=== PATIENT | female | born 1950 | race Caucasian/White ===

== ENCOUNTER → 2018-09-26 09:57 | Outpatient (CLI) | payer MEDICARE, OTHER, SELFPAY ==
--- NOTE | 2018-09-26 10:01 | BI_ITS ---
MAMMOGRAPHY - BILATERAL SCREENING REASON FOR EXAM: Female, 68 years old. Routine annual screening examination. PERTINENT HISTORY: Non-contributory. TECHNIQUE: Digital bilateral breast kourtney (3D mammographic acquisition) in the CC and MLO projections. 2-D mediolateral oblique (MLO) and craniocaudad (CC) views of both breasts were obtained. CAD: Full Field Digital Mammography with Computer Added Detection was performed. COMPARISON: Comparison is made with prior study dated May 27, 2015 and August 07, 2013. FINDINGS: Breast Composition: There are scattered areas of fibroglandular density. There are no dominant masses or suspicious calcifications. Stable small bilateral axillary lymph nodes. No other significant abnormalities are identified. There has been no significant change since the prior study. BI/SCREEN MAMM (CAD) W/KOURTNEY BILAT IMPRESSION: Stable bilateral screening mammogram. Yearly follow-up mammogram recommended. (A) ASSESSMENT CATEGORY: BIRADS Category 1: Negative. A letter regarding these results will be sent to the patient by the facility within 30 days. Approximately 10% of breast cancers are not detected by mammography. A normal mammogram should not delay biopsy of a clinically suspicious abnormality. [id number] Electronically Signed: Abhi Argueta, at 11:21 EDT , Service support ,
--- NOTE | 2018-09-26 10:13 | BD_ITS ---
STUDY: DUAL ENERGY X-RAY ABSORPTIOMETRY / DXA REASON FOR EXAM: Female, 68 years old. The patient is postmenopausal. No loss of height. TECHNIQUE: Bone Mineral Density (BMD) measurements of lumbar spine and bilateral hips were obtained. COMPARISON: Comparison is made with prior study dated August 07, 2013. FINDINGS: Lumbar Spine (L1-L4): g/cm2 (0.947) / T-score (-1.8) / Z-score (-0.2) Findings are suggestive of osteopenia with a moderate fracture risk. Left Femur Total: g/cm2 (0.851) / T-score (-1.2) / Z-score (0.1) Left Femoral Neck: g/cm2 (0.797) / T-score (-1.7) / Z-score (-0.1) Right Femur Total: g/cm2 (0.860) / T-score (-1.2) / Z-score (0.2) Right Femoral Neck: g/cm2 (0.712) / T-score (-2.3) / Z-score (-0.7) The T-Scores on the most recent prior examination were: Lumbar Spine (L1-L4): There has been worsening of bone density since the previous examination. Left Femur Total: which represents a worsening of 8%. Right Femur Total: which represents a worsening of 3.2%. BD/Dexa Bone Density Study IMPRESSION: The patient is considered osteopenic as outlined below according to World Raj Organization (WHO) criteria with a moderate fracture risk. There has been worsening of bone density since the previous examination. Reference Information: The T-score is the number of standard deviations above or below the standard which is normal for young adults at their peak bone mineral density. The World Health Organization (WHO) interprets the T-scores as follows: Above -1 Normal bone density Between -1 and -2.5 Osteopenia Equal to / or below -2.5 Osteoporosis As a practical clinical guideline, osteopenia may be graded as follows: Mild -1 through -1.5 Moderate -1.6 through -2.0 Severe -2.1 through -2.4 The Z-score is the number of standard deviations above or below age-matched controls. A Z-score of less than -1.5 would be considered abnormal. References: 1. NIH Osteoporosis and Related Bone Diseases http://www.osteo.org 2. International Society for Clinical Densitometry http://www.iscd.org 3. National Osteoporosis Foundation http://www.nof.org Electronically Signed: Abhi Argueta, at 13:30 EDT , Service support ,
== END ==
PROVIDERS: Family Provider Family Medicine; PCP Family Medicine; Referring Provider Family Medicine; Visit Provider Family Medicine
DX: Z12.31 Encounter for screening mammogram for malignant neoplasm of breast (principal); Z78.0 Asymptomatic menopausal state; M81.0 Age-related osteoporosis without current pathological fracture
CPT/HCPCS: 77063; 77067; 77080

== ENCOUNTER → 2019-04-23 13:00 | Outpatient (CLI) | payer MEDICARE, MEDICAID, SELFPAY ==
--- NOTE | 2019-04-23 13:15 | SP.MBSS_ITS ---
PRIMARY / SECONDARY DIAGNOSIS: dysphagia (R13.10) REFERRING PHYSICIAN: Dr. Jay Aguiar MD CURRENT DIET: regular textures, thin liquids DENTITION: WFL MENTAL STATUS: WNL RESPIRATORY STATUS: O2 via room air REASON FOR REFERRAL: The Patient is a 69 year old female referred for a modified barium swallow (MBS) study to objectively assess the Patients oropharyngeal swallow function under fluoroscopy secondary to reported persistent globus sensation over the past 2-3 years, with an uptake in significance over the past few months accompanied by increased mucous production and intermittent reflux in the evening. MEDICAL HISTORY: No significant past medical issues reported. PREVIOUS MODIFIED BARIUM SWALLOW STUDY: None ASSESSMENT PARAMETERS: The Patient participated in a Modified Barium Swallow (MBS) study on 04/23/2019. This study was recorded in the lateral and frontal views and images were sent to PACs for storage. Scoring was completed through each trial using the 8-point Penetration-Aspiration Scale (PAS) and summarized via the Videofluoroscopic Dysphagia Scale (VDS) and the Bolus Residue Scale (BRS), with severity scoring through the Dysphagia Severity Rating Scale (DSRS) and the Swallowing Performance Scale (SPS), and recommended diet textures through the International Dysphagia Diet Standardisation Initiative (IDDSI). 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 OBJECTIVE ASSESSMENT OF SWALLOW FUNCTION (QUANTITATIVE ? PER TRIAL): PENETRATION / ASPIRATION SCALE (VIRGEN): 1 = does not enter airway 2 = enters airway/above vocal folds/ejected 3 = enters airway/above vocal folds/not ejected 4 = enters airway/contacts vocal folds/ejected 5 = enters airway/contacts vocal folds/not ejected 6 = enters airway/below vocal folds/ejected 7 = enters airway/below vocal folds/not ejected despite effort 8 = enters airway/below vocal folds/no effort PENETRATION / ASPIRATION SCALE (SCORE): Thin liquid - 5 mL tsp.: 1 Thin liquids via cup (single sip): 1 Thin liquids via cup (single sip): 1 Thin liquids via cup (single sip): 1 Pudding via spoon: 1 Regular textured cookie: 1 Thin liquids via cup (single sip): 2 Thin liquids via cup (single sip): NA* Pudding via spoon: NA* * denotes anterior posterior view OBJECTIVE ASSESSMENT OF SWALLOW FUNCTION (QUANTITATIVE ? AGGREGATE): VIDEOFLOROSCOPIC DYSPHAGIA SCALE (VDS): LIP CLOSURE: 0 (of 4) Intact BOLUS FORMATION: 0 (of 6) Intact MASTICATION: 0 (of 8) Intact APRAXIA: 0 (of 4.5) None TONGUE TO PALATE CONTACT: 0 (of 10) Intact PREMATURE BOLUS LOSS: 0 (of 4.5) None ORAL TRANSIT TIME: 0 (of 3) < 1.5s TRIGGERING OF PHARYNGEAL SWALLOW: 0 (of 4.5) Normal VALLECULAR RESIDUE: 2 (of 6) <10% LARYNGEAL ELEVATION: 0 (of 9) Normal PYRIFORM SINUS RESIDUE: 9 (of 13.5) 10-50% COATING OF PHARYNGEAL WALL: 0 (of 9) No PHARYNGEAL TRANSIT TIME: 0 (of 6) <1.0s ASPIRATION: 6 (of 12) Supraglottic penetration BOLUS RESIDUE SCALE (BRS): 4 (of 6) residue in valleculae and piriforms OBJECTIVE ASSESSMENT OF SWALLOW FUNCTION (SEVERITY GRADING): DYSPHAGIA SEVERITY RATING SCALE (DSRS): 2 (mild) SWALLOWING PERFORMANCE SCALE (SPS): 3 (mild) OBJECTIVE ASSESSMENT OF SWALLOW FUNCTION (QUALITATIVE): ORAL PREPARATORY PHASE: sufficient mastication rate and quality; sufficient anterior oral containment during oral manipulation; preserved management of breathing / bolus formation without disrupted E ? S ? E pattern ORAL TRANSITIONAL PHASE: no presence of transitional incompetence; no lingual discoordination (no tremor / undulations); no bolus consolidation impairments; sufficient oral containment across textures with no presence of premature posterior bolus loss. PHARYNGEAL PHASE: no clinically significant findings suggesting pharyngeal dyssynchrony; appropriate hyolaryngeal excursion and laryngeal vestibule closure / pressure; sufficient / consistent laryngeal vestibule pressure generated to expel penetrated material; mild pharyngeal dysmotility attributed to what appears to be a large Zenker?s diverticulum with retrograde reflux with retrograde flow back into the pharyngeal arena raising concern for post prandial penetration and aspiration; pre-and karrie prandial motility appears functional; no signs of velopharyngeal impairments; transient shallow penetration with ingestion of thin liquids (single event) considered to be an normal age related variant; no further penetration / aspiration throughout trials. ESOPHAGEAL PHASE: there appears to be a large Zenker?s diverticulum along the posterior upper 3rd of the esophagus with consistent retention and retrograde flow back into the pharyngeal arena DYSPHAGIA ASSOCIATED MEDICAL CONSIDERATIONS / INTERVENTION CONSIDERATIONS: The Patient requires further consultation and possible surgical intervention to address the rather large Zenker?s diverticulum located within the upper 3rd of the esophagus. INTERVENTION RECOMMENDATIONS AND CONSIDERATIONS: No further skilled speech-language services warranted at this time targeting dysphagia. POST ASSESSMENT EDUCATION: Results and recommendations were discussed with the Patient immediately following MBS completion, with the Patient verbalizing understanding and agreement with all recommendations and education provided. DIET TEXTURE RECOMMENDATIONS: Will recommend a regular ? soft textured (IDDSI: 6), thin liquid diet (IDDSI: 0) diet RECOMMENDED COMPENSATORY STRATEGIES: Consider cutting tougher textures into bite sized pieces, reduced bolus volume / rate of ingestion, liquid chaser at reasonable intervals, seated upright at 90 degrees during PO intake, remain upright for 30-60 minutes post meal (reflux precaution) IMAGE COUNT: [id number] Tushar Vaca M.A., ANNE-ENGINE OILER, CBIS MBSImP Certified, LSVT Certified [facility] Speech-Language Pathology Department [email or web address]
== END ==
PROVIDERS: Family Provider Family Medicine; PCP Family Medicine; Referring Provider Family Medicine; Visit Provider Family Medicine
DX: R13.10 Dysphagia, unspecified (principal)
CPT/HCPCS: 76000; 92611

== ENCOUNTER → 2019-04-29 12:01 | Outpatient (CLI) | payer MEDICARE, MEDICAID, SELFPAY ==
--- NOTE | 2019-04-29 12:18 | RAD_ITS ---
STUDY: X-RAY - PELVIS AND RIGHT HIP REASON FOR EXAM: Female, 69 years old. Right hip pain TECHNIQUE: 3 views of the pelvis and hip. COMPARISON: CT abdomen and pelvis September 15, 2009; 2 views of the right hip February 02, 2012. FINDINGS: There is a non-specific bowel gas pattern. There are a few pelvic calcified phleboliths. Contrast from previous study also seen within diverticula of the sigmoid colon There are stable degenerative changes of the lower lumbar spine. There is stable cortical sclerosis along the bilateral sacroiliac joints, consistent with degenerative osteoarthritic changes. Normal iliac wings and visualized sacrum. Normal bilateral superior and inferior pubic rami. Normal pubic symphysis. Normal bilateral ischial tuberosities. Normal visualized femoral head. Out cortical spurring along the greater trochanter. Normal acetabulum. Normal hip joint. There is no demonstrated osseous destructive lesion or acute fracture. RAD/HIP, UNI W/ Pelvis 2-3 Views IMPRESSION: 1. Mild cortical spurring of the greater trochanter of the proximal right femur, otherwise normal x-ray examination of the right hip. 2. Degenerative changes again seen in the lower lumbar spine and bilateral sacroiliac joints. Electronically Signed: Ton Farias MD at 20:03 EST , Service support ,
[2019-04-29 15:32] LABS: Absolute Lymphocyte Count 1.77 X10^3/uL (0.83-4.51); Absolute Neutrophil Count 3.4 X10^3/uL (2.0-7.7); Basophil% 1.7 % (0-1); Eosinophil# 0.45 X10^3/uL; Eosinophils% 7.4 % (0-5); Hematocrit 42.8 % (37-47); Hemoglobin 13.2 g/dL (12.0-15.0); Lymphocyte # 1.77 X10^3/ul (4.0); Lymphocyte % 29.2 % (19-41); Mean Corp Hgb Conc 30.8 g/dL (32-36); Mean Corpuscular Hgb 29.6 pg (27.0-32.0); Monocyte# 0.33 X10^3/uL; Monocyte% 5.4 % (0-10); NRBC Flagged by Analyzer 0 % (0-5); Neutrophil % 56.1 % (47-70); Platelet Count 379 K/mm3 (150-450); RBC Distribution Width CV 12.8 % (11.6-14.6); RBC Distribution Width SD 45.3 fl (35.1-43.9); Red Blood Count 4.46 M/mm3 (4.2-5.4); White Blood Count 6.1 K/mm3 (4.4-11.0)
[2019-04-29 16:09] LABS: Vitamin B12 660 pg/mL (211-911); Vitamin D,25 Hydroxy 13.6 ng/mL (29.95-100.01)
[2019-04-29 16:38] LABS: ALB/GLOB Ratio 0.9 RATIO (0.9-2.4); AST(SGOT) 19 U/L (15-37); Alanine Aminotransfer ALT/SGPT 29 U/L (13-56); Albumin, Serum 3.5 g/dL (3.2-5.0); Alkaline Phosphatase 90 U/L (45-117); Anion Gap 5 (5-15); BUN 14 mg/dL (7-18); BUN/Creat Ratio 13.6 RATIO (10-20); Calcium,Total 9.5 mg/dL (8.5-10.1); Chloride 105 mmol/L (98-107); Cholesterol 207 mg/dL (200); Creatinine, Serum 1.03 mg/dL (0.55-1.02); EST Glomerular Filtration Rate 56 mL/min (>60); Est Glom Filt Rate - Afr Amer 68 mL/min (>60); Globulin 3.8 g/dL (2.2-4.2); Glucose 88 mg/dL (74-106); High Density Lipoprotein 74 mg/dL; Potassium 4.1 mmol/L (3.5-5.1); Protein, Total 7.3 g/dL (6.4-8.2); Sodium Level 141 mmol/L (136-145); T4 Free Direct 0.94 ng/dL (0.76-1.46); Thyroid Stim Hormone (TSH) 1.87 uIU/mL (0.358-3.74); Triglycerides 200 mg/dL; Very Low Density Lipoprotein 40 mg/dL (5-40)
== END ==
PROVIDERS: PCP Family Medicine; Referring Provider Family Medicine; Visit Provider Family Medicine
DX: R53.83 Other fatigue (principal); E78.5 Hyperlipidemia, unspecified; M81.0 Age-related osteoporosis without current pathological fracture; R41.3 Other amnesia; M25.551 Pain in right hip; Z51.81 Encounter for therapeutic drug level monitoring
CPT/HCPCS: 36415; 73502; 80053; 80061; 82306; 82607; 84439; 84443; 85025

== ENCOUNTER → 2019-12-11 13:54 | Outpatient (CLI) | payer MEDICARE, MEDICAID, SELFPAY ==
[2019-05-07 08:20] VITALS: BMI 29.2
[2019-12-11 15:55] LABS: Vitamin D,25 Hydroxy 41.8 ng/mL
== END ==
PROVIDERS: Family Provider Family Medicine; PCP Family Medicine; Visit Provider Family Medicine
DX: E55.9 Vitamin D deficiency, unspecified (principal)
CPT/HCPCS: 36415; 82306

== ENCOUNTER → 2020-01-23 08:55 | Outpatient (CLI) | payer MEDICARE, MEDICAID, SELFPAY ==
[2019-05-07 08:20] VITALS: BMI 29.2
--- NOTE | 2020-01-23 08:59 | RAD_ITS ---
STUDY: X-RAY - LEFT KNEE REASON FOR EXAM: Female, 69 years old. Dogs ran into the back of pt''s legs and fell, now left knee pain x 1 week TECHNIQUE: 4 view(s) of the knee. COMPARISON: None. FINDINGS: Normal visualized distal femur. Normal visualized proximal tibia and fibula. Normal proximal tibiofibular articulation. There is mild degenerative arthrosis of the medial femorotibial compartment. Normal lateral femorotibial compartment. Normal patellofemoral articulation. The soft tissue structures are unremarkable. RAD/Knee 4 or More Views IMPRESSION: Degenerative arthrosis. Electronically Signed: Abhi Argueta, at 13:08 EST , Service support ,
== END ==
PROVIDERS: PCP Family Medicine; Referring Provider Family Medicine; Visit Provider Family Medicine
DX: M17.12 Unilateral primary osteoarthritis, left knee (principal)
CPT/HCPCS: 73564

== ENCOUNTER 2020-11-19 07:11 | Day surgery (SDC) | payer MEDICARE, MEDICAID, SELFPAY ==
--- NOTE | 2020-11-18 08:34 | EKG12_ITS ---
Test Reason : PREOP Blood Pressure : / mmHG Vent. Rate : 067 BPM Atrial Rate : 067 BPM P-R Int : 148 ms QRS Dur : 072 ms QT Int : 380 ms P-R-T Axes : 060 -04 036 degrees QTc Int : 401 ms Normal sinus rhythm Septal infarct , age undetermined Abnormal ECG Confirmed by LINDSAY CAMPOS, JUSTO ([id number]), editor greeting card [place] ([id number]) on 11/23/2020 8:11:48 AM Referred By: Charles Naranjo Confirmed By:IRINA MONTOYA MD
[2020-11-19] VITALS (8 sets, daily range): BP systolic 118–148; BP diastolic 65–97; PULSE 64–72; RESP 16; TEMP 36.1–37.4; O2SAT 92–100; BMI 26.7
[2020-11-19] MEDS: Lactated Ringers 1,000 ML 100 ML IV (07:56)
[2020-11-19 08:12] LABS: Anion Gap 2 (5-15); BUN 13 mg/dL (7-18); Calcium,Total 9.2 mg/dL (8.5-10.1); Chloride 108 mmol/L (98-107); Creatinine, Serum 0.81 mg/dL (0.55-1.02); EST Glomerular Filtration Rate 74 mL/min (>60); Est Glom Filt Rate - Afr Amer 90 mL/min (>60); Estimated Creatinine Clearance 51.11 ml/min; Glucose 96 mg/dL (74-106); Potassium 4.2 mmol/L (3.5-5.1); Sodium Level 140 mmol/L (136-145)
[2020-11-19] MEDS: Lubricating Jelly 60 GM Tube 30 GM TOPICAL (09:09)
--- NOTE | 2020-11-19 09:42 | PCM.OPRPT ---
Problems Associated Problem List Diagnoses (1) Zenker's diverticulum: (2) Dysphagia: Report of Operation Date of Procedure: 11/19/20 Pre-Operative Diagnosis: Zenker's diverticulum, dysphagia Post-Operative Diagnosis: Same Surgery/Procedure Performed:: Endoscopic treatement of Zenker's diverticulum by esophagoscopy with diverticulotomy Description of Surgical Findings:: Phylicia is a 71-year-old female with a large Zenker's diverticulum resulting in restriction of her diet to mostly liquids due to significant dysphagia. Barium swallow at an outside facility showed a large posterior Zenker's diverticulum amenable to endoscopic treatment and the above procedure was offered. The risks, alternatives, potential complications, and benefits were discussed at length and any questions answered to the patient and/or caregiver's satisfaction. Witnessed informed consent was obtained in the office, and the patient and/or caregiver was agreeable to proceed. Procedure went as follows: The patient was identified in the preoperative holding and brought to the operating room where she was placed under general anesthesia and intubated. When appropriate anesthesia obtained, the head of bed was rotated and the patient prepped and draped in usual sterile fashion. A dental guard was then placed to protect the upper teeth and a sliding Evangelist laryngoscope then introduced. The larynx was elevated anteriorly and a large posterior diverticulum was immediately encountered at the esophageal inlet. The actual esophageal inlet was markedly stenosed and anteriorly placed and was able to be intubated with a nasogastric tube which on air insufflation produced audible gastric bubbling. The sliding Evangelist was then removed and a Weerda scope then placed following the NG tube as a guide. The superior limb of the scope was then placed into the esophagus and the inferior into the diverticulum bringing the cricopharyngeal band into view. The patient was then placed in suspension and traction placed to allow for introduction of a BHAVANA endoscopic stapler which was then used to transect the cricopharyngeal muscle joining the diverticulum into the esophageal lumen. Due to the long length of her diverticulum with secondary stapling was then performed completely reducing the diverticulum and freeing the stricture of the cervical esophageal inlet. The very to scope was then withdrawn along with the dental guard. The patient was then returned to anesthesia having tolerated the procedure well without complication. Surgeon: Charles Naranjo Type of Anesthesia: General Anesthesiologist: Kancherla,Bereket Specimen's removed: none Drains: none Estimated Blood Loss (mL): 0 mL Fluids Replaced: 1000 mL Grafts/Implants Used: none Complications none Admit VTE Documentation VTE Present on Admission: No VTE Mechan Device Prophylaxis: SCD's VTE Pharm Prophylaxis ordered?: No
--- NOTE | 2020-11-19 09:52 | PCM.DC ---
Discharge Instructions Diet Discharge Diet: - (Clear liquid diet only for 3 days, then advance to soft as tolerated) Activity Discharge Activity: Return to Normal Activity Dressing / Incision Call your doctor if your incision/area has: Increased Pain/ Swelling and - (chest pain, heart racing, shortness of breath) Call your doctor if you observe: Fever of 101 or Higher, Shortness of breath, Chest pain, Increased palpitations (irregular heartbeat) and Uncontrolled pain Follow Up Care Please Follow Up With: tai When: 2 weeks Test Results: Test results from this visit will be discussed in further detail at your follow-up appointment, if applicable. Discharge Plan Admission Primary Reason for Your Visit: Zenker's diverticulum Attending Provider: Charles Naranjo Primary Care Provider: Jay Aguiar Instructions Additional Instructions / Restrictions: Due to increased community Covid and the number of hospitalized patients with Covid the patient is strongly desirous to convalesce at home after surgery. We have discussed that the risk of mediastinitis is small but real and she is agreeable to notify me for any elevated temperatures, worsening chest pain, or fast heart rate as these would be signs of possible infection. She is also agreeable to restrict to a clear diet for 3 days to ensure full wound healing prior to advancement of the diet. Given her understanding of this potential risk and agreeability to adhere to the dietary restrictions and notification I feel that it is acceptable for her to be maintained at home during this recovery. Discharge Orders/Prescriptions Prescriptions: New acetaminophen 160 mg/5 mL (5 mL) Suspension 500 mg PO Q4H PRN PRN (Reason: Pain Score 1-5) Qty: 0 RF: 0 Referrals / Follow Up: Jay Aguiar DO [Primary Care Provider] - Disposition Disposition (needs filled in before D/C Order can be placed): Home, Self Care
== END 2020-11-19 14:36 | disposition home or self-care (01) ==
LOC: SDC 07:14 → AC 07:14
PROVIDERS: PCP Family Medicine; Referring Provider Otolaryngology; Visit Provider Otolaryngology
PROC: (CPT 43180; principal; 2020-11-19 08:45)
DX: K22.5 Diverticulum of esophagus, acquired (principal); R13.14 Dysphagia, pharyngoesophageal phase
CPT/HCPCS: 43180; 80048; 87426; 93005; C9803; J7120; J2405

== ENCOUNTER → 2021-11-10 | Outpatient (CLI) | payer MEDICARE, MEDICAID, SELFPAY ==
[2021-11-10 10:22] LABS: Absolute Lymphocyte Count 1.44 X10^3/uL (0.83-4.51); Absolute Neutrophil Count 2.5 X10^3/uL (2.0-7.7); Basophil# 0.08 X10^3/uL; Basophil% 1.7 % (0-1); Eosinophil# 0.27 X10^3/uL; Eosinophils% 5.8 % (0-5); Hematocrit 39.6 % (37-47); Hemoglobin 12.8 g/dL (12.0-15.0); Lymphocyte # 1.44 X10^3/ul (0.83-4.51); Lymphocyte % 30.7 % (19-41); Mean Corp Hgb Conc 32.3 g/dL (32-36); Mean Corpuscular Hgb 30.8 pg (27.0-32.0); Mean Corpuscular Volume 95.2 fL (81-99); Mean Platelet Vol. 10.1 fl (6.2-12.0); Monocyte# 0.39 X10^3/uL; Monocyte% 8.3 % (0-10); NRBC Flagged by Analyzer 0 % (0-5); Neutrophil % 53.3 % (47-70); Platelet Count 347 K/mm3 (150-450); RBC Distribution Width CV 13.1 % (11.6-14.6); Red Blood Count 4.16 M/mm3 (4.2-5.4); White Blood Count 4.7 K/mm3 (4.4-11.0)
[2021-11-10 10:42] LABS: Vitamin D,25 Hydroxy 30.5 ng/mL
[2021-11-10 11:06] LABS: ALB/GLOB Ratio 0.9 RATIO (0.9-2.4); AST(SGOT) 13 U/L (15-37); Alanine Aminotransfer ALT/SGPT 24 U/L (13-56); Albumin, Serum 3.2 g/dL (3.2-5.0); Alkaline Phosphatase 72 U/L (45-117); Anion Gap 4 (5-15); BUN 12 mg/dL (7-18); BUN/Creat Ratio 13.5 RATIO (10-20); Calcium,Total 9.3 mg/dL (8.5-10.1); Chloride 108 mmol/L (98-107); Cholesterol 197 mg/dL (200); Creatinine, Serum 0.89 mg/dL (0.55-1.02); EST Glomerular Filtration Rate 67 mL/min (>60); Est Glom Filt Rate - Afr Amer 81 mL/min (>60); Globulin 3.7 g/dL (2.2-4.2); Glucose 89 mg/dL (74-106); High Density Lipoprotein 78 mg/dL; Potassium 4.3 mmol/L (3.5-5.1); Protein, Total 6.9 g/dL (6.4-8.2); Sodium Level 141 mmol/L (136-145); Thyroid Stim Hormone (TSH) 1.71 uIU/mL (0.358-3.74); Triglycerides 130 mg/dL; Very Low Density Lipoprotein 26 mg/dL (5-40)
== END | disposition home or self-care (01) ==
LOC: MTLAB 07:11
PROVIDERS: PCP Family Medicine; Referring Provider Family Medicine; Visit Provider Family Medicine
DX: E78.5 Hyperlipidemia, unspecified (principal); E55.9 Vitamin D deficiency, unspecified; R53.83 Other fatigue
CPT/HCPCS: 36415; 80053; 80061; 82306; 84443; 85025

== ENCOUNTER → 2021-12-26 | Outpatient (CLI) | payer MEDICARE, MEDICAID, SELFPAY ==
--- NOTE | 2021-12-26 12:28 | STE_ITS ---
Reason For Study: Chest Pain; ZHENG; Fatigue Stress Results Protocol: Sunil Protocol Maximum Predicted HR: 149 bpm Target HR: 127 bpm % Maximum Predicted HR: 92 % DurationHeart Rate Stage (mm:ss) (bpm) BP Comment Baseline 63 124/86No Chest Pain Sunil Protocol Stage I 3:00 105 120/72No Chest Pain Sunil Protocol Stage II 3:00 117 140/70No Chest Pain; Mild Dyspnea Sunil Protocol Stage III 2:10 137 160/72No Chest Pain; Mild Dyspnea; Fatigue Recovery 84 134/76No Chest Pain Stress Duration: 8:10 mm:ss Maximum Stress HR: 137 bpm METS: 10 Baseline Echocardiogram Findings Stress Echo Wall motion Data Resting WM Intermediate WM Stress WM ECHO/Stress Test Echo w/o Contrast Interpretation Summary Exercise stress echo. 71-year-old lady with a history of chest pain. Stress EKG. Resting EKG demonstrates normal sinus rhythm with a rate of 63 bpm normal inter vals are noted resting blood pressure is 124/86 mmHg. The patient exercised according to the r egular Sunil protocol for a total duration of 8 minutes and 10 seconds. The maximum heart rate attain ed was 148 bpm which was 99% of max impacted heart rate the maximum workload was 10.1 metabolic equi valents. At rest there were no ST or T wave changes noted suggest ischemia and at peak exercise upsloping ST changes were noted we did not meet the criteria for ischemia. No clinical angina was no kashif the resting blood pressure was 124/86 with a peak blood pressure 170/72 mmHg. Stress echocardiogram. The resting echocardiographic evaluation demonstrated an ejection fraction of a pproximately 60%. The patient exercised according to regular Sunil protocol and at peak exercise ther e was thickening of all peterson and reduction of low ventricular cavity size with peaking of ejection fraction at 70%. No wall motion abnormalities were noted. Conclusion: Normal exercise stress echo with no evidence of ischemia at a high workload. Ordering Physician: Jay Aguiar Referring Physician: Jay Aguiar Performed By: Becca Hansen, PERRY, RVT
== END | disposition home or self-care (01) ==
LOC: CVS 12:26
PROVIDERS: PCP Family Medicine; Referring Provider Family Medicine; Visit Provider Family Medicine
DX: R07.9 Chest pain, unspecified (principal); R06.09 Other forms of dyspnea
CPT/HCPCS: 93017; 93350

== ENCOUNTER → 2022-01-10 | Outpatient (CLI) | payer MEDICARE, MEDICAID, SELFPAY ==
--- NOTE | 2022-01-10 11:58 | BI_ITS ---
MAMMOGRAPHY - BILATERAL SCREENING REASON FOR EXAM: Female, 71 years old. Routine annual screening examination. PERTINENT HISTORY: Non-contributory. TECHNIQUE: Digital bilateral breast kourtney (3D mammographic acquisition) in the CC and MLO projections. 2-D mediolateral oblique (MLO) and craniocaudad (CC) views of both breasts were obtained. CAD: Full Field Digital Mammography with Computer Added Detection was performed. COMPARISON: Comparison is made with prior study 09/26/2018 and 05/27/2015. FINDINGS: Breast Composition: There are scattered areas of fibroglandular density. There are no dominant masses or suspicious calcifications. Stable small benign-appearing bilateral axillary lymph nodes. No other significant abnormalities are identified. There has been no significant change since the prior study. BI/SCRN MAMM (CAD)W/KOURTNEY BILAT IMPRESSION: Stable bilateral screening mammogram. Yearly follow-up mammogram recommended. (A) ASSESSMENT CATEGORY: BIRADS Category 2: Benign. A letter regarding these results will be sent to the patient by the facility within 30 days. Approximately 10% of breast cancers are not detected by mammography. A normal mammogram should not delay biopsy of a clinically suspicious abnormality. [id number] Electronically Signed: Abhi Argueta MD at 13:17 EDT ,
--- NOTE | 2022-01-10 12:23 | BD_ITS ---
STUDY: DUAL ENERGY X-RAY ABSORPTIOMETRY / DXA REASON FOR EXAM: Female, 71 years old. M810 TECHNIQUE: Bone Mineral Density (BMD) measurements of lumbar spine and bilateral hips were obtained. COMPARISON: Comparison is made with prior study dated 09/26/2018. FINDINGS: Lumbar Spine (L1-L4): g/cm2 (0.923) / T-score (-1.1) / Z-score (1.1) Findings are suggestive of osteopenia with a low fracture risk. Left Femur Total: g/cm2 (0.741) / T-score (-1.6) / Z-score (0.0) Left Femoral Neck: g/cm2 (0.625) / T-score (-2.0) / Z-score (-0.1) Right Femur Total: g/cm2 (0.733) / T-score (-1.7) / Z-score (-0.1) Right Femoral Neck: g/cm2 (0.571) / T-score (-2.5) / Z-score (-0.6) The T-Scores on the most recent prior examination were: Lumbar Spine (L1-L4): There has been worsening of bone density since the previous examination. Left Femur Total: which represents a worsening of 6.1%. Right Femur Total: which represents a worsening of 8.2%. BD/Dexa Bone Density Study IMPRESSION: The patient is considered osteopenic as outlined below according to World Raj Organization (WHO) criteria with a high fracture risk. There has been worsening of bone density since the previous examination. Reference Information: The T-score is the number of standard deviations above or below the standard which is normal for young adults at their peak bone mineral density. The World Health Organization (WHO) interprets the T-scores as follows: Above -1 Normal bone density Between -1 and -2.5 Osteopenia Equal to / or below -2.5 Osteoporosis As a practical clinical guideline, osteopenia may be graded as follows: Mild -1 through -1.5 Moderate -1.6 through -2.0 Severe -2.1 through -2.4 The Z-score is the number of standard deviations above or below age-matched controls. A Z-score of less than -1.5 would be considered abnormal. References: 1. NIH Osteoporosis and Related Bone Diseases www osteo.org 2. International Society for Clinical Densitometry www iscd.org 3. National Osteoporosis Foundation www nof.org Electronically Signed: Abhi Argueta MD at 9:13 EDT ,
== END | disposition home or self-care (01) ==
PROVIDERS: PCP Family Medicine; Visit Provider Family Medicine
DX: M81.0 Age-related osteoporosis without current pathological fracture (principal); Z12.31 Encounter for screening mammogram for malignant neoplasm of breast
CPT/HCPCS: 77063; 77067; 77080

== ENCOUNTER → 2022-03-03 | Outpatient (CLI) | payer MEDICARE, MEDICAID, SELFPAY ==
--- NOTE | 2022-03-03 13:38 | ST.MBS ---
Modified Barium Swallow - Patient Information Study Date: 03/03/22 Study Time: 13:00 Direct Billable Minutes: 75 Total Minutes procedure & reportin Diagnosis: Dysphagia (R13.10), Zenker's diverticulum (K22.5) Referring Physician: Jay Aguiar Reason for Referral: Objectively assess swallow function, assess risk for aspiration, and determine recommendations for least restrictive diet textures and compensatory strategies to improve safety of swallow. Medical History: The patient is a 71-year-old female with PMH including dysphagia and Zenker's diverticulum. Previous MBSS 04/23/2019 presented with overall normal oropharyngeal swallow function with abnormal esophageal phase findings indicative of Zenker?s diverticulum. Pt underwent surgery to repair Zenker's diverticulum on 11/19/2020. She has noticed increased difficulty swallowing in the past two months characterized by sensation of her throat being clogged and difficulty getting foods and pills down. Her PCP would like to start her on a medication, but she was hesitant due to her swallowing difficulty. He referred her for repeat MBSS. Current Diet Ordered: Soft solids / Thin liquids Dentition: WNL Mental Status: WNL Respiratory Status: Oxygenating on Room Air - Penetration-Aspiration Scale Penetration-Aspiration Scale: OBJECTIVE ASSESSMENT OF SWALLOW FUNCTION (QUANTITATIVE ? PER TRIAL): PENETRATION / ASPIRATION SCALE (VIRGEN): 1 = does not enter airway 2 = enters airway/above vocal folds/ejected 3 = enters airway/above vocal folds/not ejected 4 = enters airway/contacts vocal folds/ejected 5 = enters airway/contacts vocal folds/not ejected 6 = enters airway/below vocal folds/ejected 7 = enters airway/below vocal folds/not ejected despite effort 8 = enters airway/below vocal folds/no effort VIDEOFLOROSCOPIC SCALE SCORE (VIGREN): Grade I = aspiration of material that has penetrated into the laryngeal vestibule, intact cough reflex Grade II = aspiration < 10 % of the bolus, intact cough reflex Grade III = aspiration of < 10 % of the bolus, reduced cough reflex or aspiration of > 10 % of the bolus, intact cough reflex Grade IV = aspiration of > 10 % of the bolus, reduced cough reflex - Penetration-Aspiration Scale Score Thin Liquid via teaspoon Result: 1= does not enter airway Thin Liquid via small single sip from cup Result: 1= does not enter airway Thin Liquid via sequential sips from cup Result: 1= does not enter airway [place] Thick Liquid via small single sip from cup Result: 1= does not enter airway [place] Thick Liquid via small single sip from cup Result: 1= does not enter airway Pudding via teaspoon with esophageal screen Result: 1= does not enter airway 1/2 Cookie Result: 1= does not enter airway Thin Liquid via single sip from straw Result: 1= does not enter airway Barium Tablet with water Result: 1= does not enter airway - Oral Phase Labial Seal: No Labial Escape Tongue Control During Bolus Hold: Cohesive bolus between tongue to palatal seal Bolus Preparation/Mastication: Timely and efficient chewing and mashing Bolus Transport/Lingual Motion: Brisk tongue motion Oral Residue: Residue collection on oral structures - piecemeal deglutition of cookie - Pharyngeal Phase Initiation of Pharyngeal Swallow: Bolus head in valleculae Soft Palate Elevation: No bolus between soft palate and pharyngeal wall Laryngeal Elevation: Comp. Superior move thyroid cart w/comp. apprx arytenoid cart-epig pet Anterior Hyoid Excursion: Complete anterior movement Epiglottic Movement: Partial inversion Laryngeal Vestibule Closure at Height of Swallow: Complete; no air/contrast in laryngeal vestibule Pharyngeal Stripping Wave: Present - complete Pharyngoesophageal Segment Opening: Complete distension and complete duration; no obstruction of flow Tongue Base Retraction: Narrow column of contrast between tongue base & post. pharyngeal wall Pharyngeal Residue: Trace residue within or on pharyngeal structures - Esophageal Phase Esophageal Clearance: Esophageal retention - Diagnosis/Impression Diagnosis: Oropharyngeal swallow function grossly WNL Impression: Oropharyngeal swallow function is grossly WNL. The patient presents with timely swallow onset, good airway closure during the swallow, and trace pharyngeal residues. She demonstrated timely and effective mastication and piecemeal deglutition of cookie. No aspiration observed with any trials during the study. Good oral and pharyngeal clearance of thin liquid pills. SERVICER TRAV[employer] TRAILERS informed pt it is okay to consume medications whole. SERVIC[employer] TRAV[employer] TRAIL[employer] concerned for returning Zenker's diverticulum. SEE esophageal retention in images in PACS across all liquid, pudding, and cookie trials. Barium tablet did fully clear through the upper esophagus. Image below is of retention of honey thick liquid in upper esophagus. - Recommendations Diet: Regular Textures - Easy to Chew textures (IDDSI Level 7), Thin Liquids Compensatory Strategies: Small Bites, Small Sips, Slow Rate, Alternate bites/solids and sips/liquids, Sitting upright, Remain sitting upright for 30 minutes after PO intake Recommend Repeat Modified Barium Swallow: No Need for Skilled Speech Therapy Services: No Recommended Referrals: ENT Consult - Will recommend re-consult with ENT, Dr. Naranjo, regarding concerns for Zenker's diverticulum. Education Completed: 1. Described result of evaluation. - Image Count: [id number] - Status Active ST Patient: Active - Contact Information [facility] Speech Therapy:: Karina Miranda M.A. [facility]-[employer] Speech-Language Pathologist [facility] [address] [place] [address] [email or web address] [phone] 03/03/22 14:12
== END | disposition home or self-care (01) ==
LOC: RAD 12:41
PROVIDERS: PCP Family Medicine; Referring Provider Family Medicine; Visit Provider Family Medicine
DX: R13.10 Dysphagia, unspecified (principal); K22.5 Diverticulum of esophagus, acquired
CPT/HCPCS: 74230; 92611

== ENCOUNTER → 2022-03-28 | Outpatient (CLI) | payer MEDICARE, MEDICAID, SELFPAY ==
--- NOTE | 2022-03-28 09:03 | RAD_ITS ---
STUDY: X-RAY - PELVIS AND LEFT HIP REASON FOR EXAM: Female, 72 years old. Left hip pain TECHNIQUE: 3 views of the pelvis and hip. COMPARISON: None. FINDINGS: There is a non-specific bowel gas pattern. Normal visualized soft tissue structures. Normal bilateral iliac wings, sacroiliac joints and visualized sacrum. Normal bilateral superior and inferior pubic rami. Normal pubic symphysis. Normal bilateral ischial tuberosities. Normal visualized femoral head. Normal acetabulum. There is mild articular joint space narrowing of the hip. Similar arthritic changes noted in the right hip. RAD/HIP, UNI W/ Pelvis 2-3 Views IMPRESSION: Age consistent degenerative changes without fracture or aggressive osseous lesion. Electronically Signed: Ton Massey MD at 14:03 EST ,
== END | disposition home or self-care (01) ==
PROVIDERS: PCP Family Medicine; Referring Provider Family Medicine; Visit Provider Family Medicine
DX: M25.552 Pain in left hip (principal)
CPT/HCPCS: 73502

== ENCOUNTER 2022-04-04 11:16 | Outpatient (RCR) | payer MEDICARE, MEDICAID, SELFPAY ==
--- NOTE | 2022-04-04 12:02 | ST ---
[facility] Speech Pathology [address] [place] [address] Modified Barium Swallow Study MR#: [id number] Acct: [id number] Name: YAJAIRA TAY Rep #: [id number] : 1950 71 From: Karina Miranda M.A., [facility]-BALANCING MACHINE SET UP WORKER Modified Barium Swallow - Patient Information Study Date: 03/03/22 Study Time: 13:00 Direct Billable Minutes: 75 Total Minutes procedure & reportin Diagnosis: Dysphagia (R13.10), Zenker's diverticulum (K22.5) Referring Physician: Jay Aguiar Reason for Referral: Objectively assess swallow function, assess risk for aspiration, and determine recommendations for least restrictive diet textures and compensatory strategies to improve safety of swallow. Medical History: The patient is a 71-year-old female with PMH including dysphagia and Zenker's diverticulum. Previous MBSS 04/23/2019 presented with overall normal oropharyngeal swallow function with abnormal esophageal phase findings indicative of Zenker?s diverticulum. Pt underwent surgery to repair Zenker's diverticulum on 11/19/2020. She has noticed increased difficulty swallowing in the past two months characterized by sensation of her throat being clogged and difficulty getting foods and pills down. Her PCP would like to start her on a medication, but she was hesitant due to her swallowing difficulty. He referred her for repeat MBSS. Current Diet Ordered: Soft solids / Thin liquids Dentition: WNL Mental Status: WNL Respiratory Status: Oxygenating on Room Air - Penetration-Aspiration Scale Penetration-Aspiration Scale: OBJECTIVE ASSESSMENT OF SWALLOW FUNCTION (QUANTITATIVE ? PER TRIAL): PENETRATION / ASPIRATION SCALE (VIRGEN): 1 = does not enter airway 2 = enters airway/above vocal folds/ejected 3 = enters airway/above vocal folds/not ejected 4 = enters airway/contacts vocal folds/ejected 5 = enters airway/contacts vocal folds/not ejected 6 = enters airway/below vocal folds/ejected 7 = enters airway/below vocal folds/not ejected despite effort 8 = enters airway/below vocal folds/no effort VIDEOFLOROSCOPIC SCALE SCORE (VIRGEN): Grade I = aspiration of material that has penetrated into the laryngeal vestibule, intact cough reflex Grade II = aspiration < 10 % of the bolus, intact cough reflex Grade III = aspiration of < 10 % of the bolus, reduced cough reflex or aspiration of > 10 % of the bolus, intact cough reflex Grade IV = aspiration of > 10 % of the bolus, reduced cough reflex - Penetration-Aspiration Scale Score Thin Liquid via teaspoon Result: 1= does not enter airway Thin Liquid via small single sip from cup Result: 1= does not enter airway Thin Liquid via sequential sips from cup Result: 1= does not enter airway [place] Thick Liquid via small single sip from cup Result: 1= does not enter airway [place] Thick Liquid via small single sip from cup Result: 1= does not enter airway Pudding via teaspoon with esophageal screen Result: 1= does not enter airway 1/2 Cookie Result: 1= does not enter airway Thin Liquid via single sip from straw Result: 1= does not enter airway Barium Tablet with water Result: 1= does not enter airway - Oral Phase Labial Seal: No Labial Escape Tongue Control During Bolus Hold: Cohesive bolus between tongue to palatal seal Bolus Preparation/Mastication: Timely and efficient chewing and mashing Bolus Transport/Lingual Motion: Brisk tongue motion Oral Residue: Residue collection on oral structures - piecemeal deglutition of cookie - Pharyngeal Phase Initiation of Pharyngeal Swallow: Bolus head in valleculae Soft Palate Elevation: No bolus between soft palate and pharyngeal wall Laryngeal Elevation: Comp. Superior move thyroid cart w/comp. apprx arytenoid cart-epig pet Anterior Hyoid Excursion: Complete anterior movement Epiglottic Movement: Partial inversion Laryngeal Vestibule Closure at Height of Swallow: Complete; no air/contrast in laryngeal vestibule Pharyngeal Stripping Wave: Present - complete Pharyngoesophageal Segment Opening: Complete distension and complete duration; no obstruction of flow Tongue Base Retraction: Narrow column of contrast between tongue base & post. pharyngeal wall Pharyngeal Residue: Trace residue within or on pharyngeal structures - Esophageal Phase Esophageal Clearance: Esophageal retention - Diagnosis/Impression Diagnosis: Oropharyngeal swallow function grossly WNL Impression: Oropharyngeal swallow function is grossly WNL. The patient presents with timely swallow onset, good airway closure during the swallow, and trace pharyngeal residues. She demonstrated timely and effective mastication and piecemeal deglutition of cookie. No aspiration observed with any trials during the study. Good oral and pharyngeal clearance of thin liquid pills. BALANCING MACHINE SET UP WORKER informed pt it is okay to consume medications whole. BALANCING MACHINE SET UP WORKER concerned for returning [facility]'s diverticulum. SEE esophageal retention in images in PACS across all liquid, pudding, and cookie trials. Barium tablet did fully clear through the upper esophagus. - Recommendations Diet: Regular Textures - Easy to Chew textures (IDDSI Level 7), Thin Liquids Compensatory Strategies: Small Bites, Small Sips, Slow Rate, Alternate bites/solids and sips/ liquids, Sitting upright, Remain sitting upright for 30 minutes after PO intake Recommend Repeat Modified Barium Swallow: No Need for Skilled Speech Therapy Services: No Recommended Referrals: ENT Consult - Will recommend re-consult with ENT, Dr. Naranjo, regarding concerns for Zenker's diverticulum. Education Completed: 1. Described result of evaluation. - Contact Information [facility] Speech Therapy:: Karina Miranda M.A. [facility]-BALANCING MACHINE SET UP WORKER Speech-Language Pathologist [facility] [address] [place] [address] [email or web address] [phone] 03/03/22 14:12
--- NOTE | 2022-04-04 12:15 | HP.SP.EV_ITS ---
History - History Date of Eval: 04/04/22 Medical Diagnosis (from RX): Dysphagia Date of Onset of Diagnosis: 03/03/22 Previous speech therapy: No Other Relevant Medical History/Diagnoses/Surgery: Zenkers Diverticulum Smoking Status: Never smoker Hx Tobacco Use: No - Pain Is pain an issue with your current prescribed condition?: No Patient Allergies - Allergies Allergies No Known Allergies Allergy (Verified 11/19/20 07:49) Subjective Dysphagia - Symptoms Reported Symptoms/Problems with: Difficulty Swallowing Solids, Difficulty Swallowing Pills - Current Diet Solids Current Diet: Regular - Current Diet Liquids Current Liquids: Thin [place] free water Protocol: No - Comments Patient report -: Phylicia stated that she is able to chew and swallow foods but things like skin of peas and potatoes get stuck. When questioned on location of feeling stuck she pointed to base of throat. She has not been alternating solids and liquids. She has modified her diet to avoid foods with skins and harder foods. She stated that she has no difficulty with modifying her diet. Objective Dysphagia - Impact Impact on Safety & Functioning: No Limitations - Diet Texture Recommendations Solids: Regular (Level 7) Liquids: Thin (Level 0) Other: Patient was given recommendation to alternate solids and liquids when feeling of food not completely swallowed. Educated on results of MBSS and oral/pharyngeal areas vs esophageal. Suggested putting pills in puree then drinking liquid so she does not gag and pill goes down completely. - Safety Saftey Precautions/Swallowing Recommendations (Check all that Apply): Upright Position at Least 30 Minutes After Meals, Small Sips & Bites when Eating, Alternate Liquids & Solids, Other (Specify Below) Other: Add moisture to food and to put pills in applesauce or crush. Recommended discussing with pharmacist what can be crushed/not crushed. - Results Swallowing Within Normal Limits: Yes Modified Barium Results Hx MBS Results (from prior exam): 04/04/22 12:02 Speech Therapy by Samy Ambrose [facility] Speech Pathology [address] [place] [address] Modified Barium Swallow Study MR#: [id number] Acct: [id number] Name: PHYLICIA TAY Rep #: [id number] : 1950 71 From: Karina Miranda M.A., [facility]-DIGITAL MEDIA SALES CONSULTANT Modified Barium Swallow - Patient Information Study Date: 03/03/22 Study Time: 13:00 Direct Billable Minutes: 75 Total Minutes procedure & reportin Diagnosis: Dysphagia (R13.10), Zenker's diverticulum (K22.5) Referring Physician: Jay Aguiar Reason for Referral: Objectively assess swallow function, assess risk for aspiration, and determine recommendations for least restrictive diet textures and compensatory strategies to improve safety of swal low. Medical History: The patient is a 71-year-old female with PMH including dysphagia and Zenker's diverticulum. Previous MBSS 04/23/2019 presented with overall normal oropharyngeal swallow function with abnormal esophageal phase findings indicative of Zenker?s diverticulum. Pt underwent surgery to repair Zenker's diverticulum on 11/19/2020. She has noticed increased difficulty swallowing in the past two months characterized by sensation of her throat being clogged and difficulty getting foods and pills down. Her PCP would like to start her on a medication, but she was hesitant due to her swallowing difficulty. He referred her for repeat MBSS. Current Diet Ordered: Soft solids / Thin liquids Dentition: WNL Mental Status: WNL Respiratory Status: Oxygenating on Room Air - Penetration-Aspiration Scale Penetration-Aspiration Scale: OBJECTIVE ASSESSMENT OF SWALLOW FUNCTION (QUANTITATIVE ? PER TRIAL): PENETRATION / ASPIRATION SCALE (VIRGEN): 1 = does not enter airway 2 = enters airway/above vocal folds/ejected 3 = enters airway/above vocal folds/not ejected 4 = enters airway/contacts vocal folds/ejected 5 = enters airway/contacts vocal folds/not ejected 6 = enters airway/below vocal folds/ejected 7 = enters airway/below vocal folds/not ejected despite effort 8 = enters airway/below vocal folds/no effort VIDEOFLOROSCOPIC SCALE SCORE (VIRGEN): Grade I = aspiration of material that has penetrated into the laryngeal vestibule, intact cough reflex Grade II = aspiration < 10 % of the bolus, intact cough reflex Grade III = aspiration of < 10 % of the bolus, reduced cough reflex or aspiration of > 10 % of the bolus, intact cough reflex Grade IV = aspiration of > 10 % of the bolus, reduced cough reflex - Penetration-Aspiration Scale Score Thin Liquid via teaspoon Result: 1= does not enter airway Thin Liquid via small single sip from cup Result: 1= does not enter airway Thin Liquid via sequential sips from cup Result: 1= does not enter airway [place] Thick Liquid via small single sip from cup Result: 1= does not enter airway [place] Thick Liquid via small single sip from cup Result: 1= does not enter airway Pudding via teaspoon with esophageal screen Result: 1= does not enter airway 1/2 Cookie Result: 1= does not enter airway Thin Liquid via single sip from straw Result: 1= does not enter airway Barium Tablet with water Result: 1= does not enter airway - Oral Phase Labial Seal: No Labial Escape Tongue Control During Bolus Hold: Cohesive bolus between tongue to palatal seal Bolus Preparation/Mastication: Timely and efficient chewing and mashing Bolus Transport/Lingual Motion: Brisk tongue motion Oral Residue: Residue collection on oral structures - piecemeal deglutition of cookie - Pharyngeal Phase Initiation of Pharyngeal Swallow: Bolus head in valleculae Soft Palate Elevation: No bolus between soft palate and pharyngeal wall Laryngeal Elevation: Comp. Superior move thyroid cart w/comp. apprx arytenoid cart-epig pet Anterior Hyoid Excursion: Complete anterior movement Epiglottic Movement: Partial inversion Laryngeal Vestibule Closure at Height of Swallow: Complete; no air/contrast in laryngeal vestibule Pharyngeal Stripping Wave: Present - complete Pharyngoesophageal Segment Opening: Complete distension and complete duration; no obstruction of flow Tongue Base Retraction: Narrow column of contrast between tongue base & post. pharyngeal wall Pharyngeal Residue: Trace residue within or on pharyngeal structures - Esophageal Phase Esophageal Clearance: Esophageal retention - Diagnosis/Impression Diagnosis: Oropharyngeal swallow function grossly WNL Impression: Oropharyngeal swallow function is grossly WNL. The patient presents with timely swallow onset, good airway closure during the swallow, and trace pharyngeal residues. She demonstrated timely and effective mastication and piecemeal deglutition of cookie. No aspiration observed with any trials during the study. Good oral and pharyngeal clearance of thin liquid pills. DIGITAL MEDIA SALES CONSULTANT informed pt it is okay to consume medications whole. DIGITAL MEDIA SALES CONSULTANT concerned for returning Zenker's diverticulum. SEE esophageal retention in images in PACS across all liquid, pudding, and cookie trials. Barium tablet did fully clear through the upper esophagus. - Recommendations Diet: Regular Textures - Easy to Chew textures (IDDSI Level 7), Thin Liquids Compensatory Strategies: Small Bites, Small Sips, Slow Rate, Alternate bites/solids and sips/ liquids, Sitting upright, Remain sitting upright for 30 minutes after PO intake Recommend Repeat Modified Barium Swallow: No Need for Skilled Speech Therapy Services: No Recommended Referrals: ENT Consult - Will recommend re-consult with ENT, Dr. Naranjo, regarding concerns for Zenker's diverticulum. Education Completed: 1. Described result of evaluation. - Contact Information [facility] Speech Therapy:: Karina Miranda M.A. [facility]-DIGITAL MEDIA SALES CONSULTANT Speech-Language Pathologist [facility] [address] [place] [address] [email or web address] [phone] 03/03/22 14:12 Electronically signed by Samy Ambrose M.A., [facility]-DIGITAL MEDIA SALES CONSULTANT on 04/04/22 12:06 Initialized on 04/04/22 12:02 - END OF NOTE Plan - Plan Plan: No further treatment warranted. She was recommended to see GI if difficulty continues as she exhibited esophageal retention during her MBSS. - Recommendations MBS: No Treatment Warranted: No Education - Patient has Indicated that the Following Identified Educational Needs: None The Patient has indicated that they have no educational or learning abilities that may effect their care.: Yes - Patient Instruction Patient Education: Diagnosis, Safety Precautions, Diet Level Other Education: Recommendation of GI, results of MBS and recommendations of MBSS. Person Taught: Patient Teaching Method: Discussion Response to teaching: Verbalize understanding
== END 2022-04-04 14:26 | disposition home or self-care (01) ==
LOC: SP 11:16
PROVIDERS: PCP Family Medicine; Referring Provider Family Medicine; Visit Provider Family Medicine
DX: R13.12 Dysphagia, oropharyngeal phase (principal)
CPT/HCPCS: 92610

== ENCOUNTER 2022-05-26 09:00 | Outpatient (RCR) | payer MEDICARE, MEDICAID, SELFPAY ==
--- NOTE | 2022-04-17 09:15 | HP.PTEVAL_ITS ---
Patient's Visit Information YAJAIRA TAY is a 72 year old F referred to Physical Therapy by Dr. Ian Leiva DO with a diagnosis of DDD, , lumbar radiculopathy. Date of Evaluation: 04/17/22 Physical Therapist: Charles Olmos, DPT, OCS, CSCS - Visit Plan Frequency: 3x /Week Duration: 4-6 Weeks Plan: 3x/week for 3-6 for. 1. rollotu and STM and stretch to L piriformis and gluts. 2/ Teach quick home NS strength and LB mobility program. 3. Teach gym based(you ramirez, ) program for WB to hips, LE/core/postural strength and walking /ellpitcal for claudia term management of DDD, OP and health with list for I. - Subjective had a bone scan that showed osteopenia, last couple months had pain in L hip , sent to ortho and x ray showed DDD severe and recommended therapy. She raises her two grandchildren who need her and wants to stay healthy. No back pain, pain is posterior L hip, intemrittent pain and today is good. Not sure what she does to make it worse. it is never terrible. Sleep is Ok. Referees volleyball stadning alot over the weekend adn was a little uncomfy. Doing basic ADLS. No regular execises, wants to join [employer]. 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 - Pain L post hip Pain Intensity (Out of 10): 0 Pain Intensity Range: 0, 3 - Objective Walks avoiding pushoff L into PT mildly. I gait, I transfers, Steps reciprocal with pain pushing up with L in L posterior hip. Tender L gluts and prifromis mildly. LB AROM WFL and without pain, pelvic movement is good. Hip PROM WFL with only slight pain L ext rotation end range in glut L. No unusual end feel. - PADMAJA, - FADDIR, - slump and SLR test. Some mild tightness piriformis L > R and quads. weakness present core 3/5 bad and extension. 3+ /5 hip ext and abd B, 4- hip flexion, pain on L. knee ext adn flexion 4 B. ankle testing 4 B. reflexes 2/3 patella and achilles. Sensation LE WNL to gross light touch. - Balance/Special Test Scores Oswestry Low Back Score: 1 - Goals Goal 1:: Pain in L hip 99% better and 1/10 at worst and manageable Goal Time Frame: 4-6 Weeks Goal 2:: I appropriate gym based core and LE and postural strength program(you ramirez) Goal Time Frame: 4-6 Weeks Goal 3:: No tenderness posterior L hip to palpation or ext rotation of hip in order to tolerate stanidn for volleyball ref better. - Rehabilitation Potential Physical Therapy Diagnosis: soft tissue L hip and core instability. Rehabilitation Potential: Fair - Anticipated Interventions Patient/Client Instruction: Educate patient on: Condition, Plan of Care For the Purpose of:: To decrease pain, To increase ROM, To improve muscle perfor tl and motor function, To increase tolerance to activity/condition/position, To improve ability of physical actions for home/community/work/leisure Therapeutic Exercise to Include: Strength training, Flexibilty training, Passive ROM, Active ROM, Dynamic Lumbar Stabilization For the Purpose of:: To decrease pain, To increase ROM, To improve nutrient delivery to tissue, To improve muscle performance and motor function, To increase tolerance to activity/condition/position Manual Therapy Techniques to Include: Passive ROM, Soft tissue mobilization For the Purpose of:: To decrease pain, To improve nutrient delivery to tissue, To increase tolerance to activity/condition/position Thank you for the opportunity to evaluate your patient. For Medicare and Medicare HMO plans, please review the plan of care and approve it. It will need to be FAXED BACK to us at [phone] for Medicare purposes. For Medicare only, by signing this I certify the plan of care. Please let me know if there are questions or concerns regarding this plan of care. Physician Signature:_ Date:
--- NOTE | 2022-05-26 09:35 | HP.PTDCSUM ---
It has been my pleasure to treat YAJAIRA TAY referred by Dr. Ian Leiva DO, with the diagnosis of DDD, lumbar radiculopathy for a total of 6 visit(s). Discharge Date: 05/26/22 Please see the following information for a summary of their discharge status. Subjective: Doing well.No pain. No Pain in L hip for weeks. Can do her gym workout herself. L post hip Pain Intensity (Out of 10): 0 % Improvement: 99 Objective/Function: No tenderness in hip, good hip ROM and no pain with resisted testing rotations L hip. No gait problems or antalgia. overall doing well ahead of schedule Goal 1:: Pain in L hip 99% better and 1/10 at worst and manageable Goal Progress: Goal Met Goal 2:: I appropriate gym based core and LE and postural strength program(you ramirez) Goal Progress: Goal Met Goal 3:: No tenderness posterior L hip to palpation or ext rotation of hip in order to tolerate stanidn for volleyball ref better. Goal Progress: Goal Met Plan: d/c to gyma dn HEP Discharge Comments: Pt to continue workout in gy as member I. If there are questions or concerns regarding this patient's physical therapy, please feel free to call me at [phone]. Thank you for the referral of this patient. Sincerely, Charles Olmos, DPT, OCS, CSCS Balance/Gait/Functional tests - Balance/Special Test Scores Oswestry Low Back Score: 0
== END 2022-05-26 19:00 | disposition home or self-care (01) ==
LOC: PT 09:00
PROVIDERS: PCP Family Medicine; Referring Provider Orthopaedic Surgery; Visit Provider Orthopaedic Surgery
DX: M51.16 Intervertebral disc disorders with radiculopathy, lumbar region
CPT/HCPCS: 97110; 97162; 97164

== ENCOUNTER 2022-11-15 08:31 | Outpatient (CLI) | payer MEDICARE, MEDICAID, SELFPAY ==
[2022-11-15 08:35] VITALS: BP 144/79; PULSE 62; RESP 16; TEMP 35.6; O2SAT 100
[2022-11-15] MEDS: 0.9% NaCl Peripheral Flush Adult/Peds IV (08:47)
[2022-11-15] MEDS: Zoledronic Acid 5 MG 100 ML 300 MG IV (09:04)
[2022-11-15 09:26] VITALS: BP 117/72; PULSE 65; RESP 16; TEMP 35.6; O2SAT 96
== END 2022-11-15 08:32 | disposition home or self-care (01) ==
LOC: MEDOUTP 08:31
PROVIDERS: PCP Family Medicine; Referring Provider Internal Medicine Endocrinology, Diabetes & Metabolism; Visit Provider Internal Medicine Endocrinology, Diabetes & Metabolism
DX: M81.0 Age-related osteoporosis without current pathological fracture (principal)
CPT/HCPCS: 96365; A4216; J3489

== ENCOUNTER → 2022-11-22 | Outpatient (CLI) | payer MEDICARE, MEDICAID, SELFPAY ==
[2022-11-22 12:30] LABS: Absolute Lymphocyte Count 1.34 X10^3/uL (0.83-4.51); Absolute Neutrophil Count 3.2 X10^3/uL (2.0-7.7); Basophil# 0.05 X10^3/uL; Basophil% 0.9 % (0-1); Eosinophil# 0.32 X10^3/uL; Hematocrit 39.1 % (37-47); Hemoglobin 12.7 g/dL (12.0-15.0); Lymphocyte # 1.34 X10^3/ul (0.83-4.51); Lymphocyte % 25.1 % (19-41); Mean Corp Hgb Conc 32.5 g/dL (32-36); Mean Corpuscular Hgb 31.1 pg (27.0-32.0); Mean Corpuscular Volume 95.8 fL (81-99); Mean Platelet Vol. 9.8 fl (6.2-12.0); Monocyte# 0.43 X10^3/uL; Monocyte% 8.1 % (0-10); NRBC Flagged by Analyzer 0 % (0-5); Neutrophil # 3.19 X10^3/uL (2.7-7.7); Neutrophil % 59.7 % (47-70); Platelet Count 353 K/mm3 (150-450); RBC Distribution Width CV 13.1 % (11.6-14.6); RBC Distribution Width SD 46.4 fl (35.1-43.9); Red Blood Count 4.08 M/mm3 (4.2-5.4); White Blood Count 5.3 K/mm3 (4.4-11.0)
[2022-11-22 12:49] LABS: Vitamin B12 337 pg/mL (211-911); Vitamin D,25 Hydroxy 25.1 ng/mL
[2022-11-22 13:09] LABS: ALB/GLOB Ratio 0.8 RATIO (0.9-2.4); AST(SGOT) 18 U/L (15-37); Alanine Aminotransfer ALT/SGPT 27 U/L (13-56); Alkaline Phosphatase 102 U/L (45-117); Anion Gap 4 (5-15); BUN 15 mg/dL (7-18); Calcium,Total 8.5 mg/dL (8.5-10.1); Chloride 112 mmol/L (98-107); Cholesterol 203 mg/dL (200); Creatinine, Serum 0.88 mg/dL (0.55-1.02); EST Glomerular Filtration Rate 67 mL/min (>60); Est Glom Filt Rate - Afr Amer 81 mL/min (>60); Globulin 3.7 g/dL (2.2-4.2); Glucose 89 mg/dL (74-106); High Density Lipoprotein 74 mg/dL; Potassium 4.2 mmol/L (3.5-5.1); Protein, Total 6.7 g/dL (6.4-8.2); Sodium Level 143 mmol/L (136-145); Thyroid Stim Hormone (TSH) 2.04 uIU/mL (0.358-3.74); Triglycerides 176 mg/dL; Very Low Density Lipoprotein 35 mg/dL (5-40)
== END | disposition home or self-care (01) ==
LOC: BFHLAB 09:25
PROVIDERS: PCP Family Medicine; Referring Provider Family Medicine; Visit Provider Family Medicine
DX: R53.83 Other fatigue (principal); I10 Essential (primary) hypertension; M81.0 Age-related osteoporosis without current pathological fracture
CPT/HCPCS: 36415; 80053; 80061; 82306; 82607; 84443; 85025

== ENCOUNTER → 2023-04-11 | Outpatient (CLI) | payer MEDICARE, MEDICAID, SELFPAY ==
--- NOTE | 2023-04-11 14:30 | ST.MBS ---
Modified Barium Swallow Patient Information Study Date: 04/11/23 Study Time: 13:00 Direct Billable Minutes: 101 Total Minutes procedure & reportin Diagnosis: Oropharyngeal dysphagia R13.12 Referring Physician: Jay Aguiar Reason for Referral: Objectively assess swallow function, assess risk for aspiration, and determine recommendations for least restrictive diet textures and compensatory strategies to improve safety of swallow. Medical History: The patient is a 73-year-old female with PMH including dysphagia and Zenker's diverticulum. Previous MBSS 04/23/2019 presented with overall normal oropharyngeal swallow function with abnormal esophageal phase findings indicative of Zenker?s diverticulum. Pt underwent surgery to repair Zenker's diverticulum on 11/19/2020. She noticed increased difficulty swallowing ~12/2021. MBSS completed 03/03/2022 revealing overall normal oropharyngeal swallow function and recommending ENT Consult for concerns for Zenker's diverticulum. [facility] consult for concern for diverticulum on 03/03/2022 MBSS, no repeat MBSS warranted at that time. The patient reports having followed up with her ENT, Dr. Naranjo, who stated she did not have any abnormalities after 03/03/2022 MBSS. She has had no intervention since 03/03/2022. She was re-referred for MBSS 04/11/2023 for persistent swallowing difficulty. She reports sensation of food or drink stuck and regurgitation of food/pills. Current Diet Ordered: Regular textures / Thin liquids Dentition: WNL and Natural Teeth Mental Status: WNL Respiratory Status: Oxygenating on Room Air Penetration-Aspiration Scale Penetration-Aspiration Scale: OBJECTIVE ASSESSMENT OF SWALLOW FUNCTION (QUANTITATIVE ? PER TRIAL): PENETRATION / ASPIRATION SCALE (VIRGEN): 1 = does not enter airway 2 = enters airway/above vocal folds/ejected 3 = enters airway/above vocal folds/not ejected 4 = enters airway/contacts vocal folds/ejected 5 = enters airway/contacts vocal folds/not ejected 6 = enters airway/below vocal folds/ejected 7 = enters airway/below vocal folds/not ejected despite effort 8 = enters airway/below vocal folds/no effort VIDEOFLOROSCOPIC SCALE SCORE (VIRGEN): Grade I = aspiration of material that has penetrated into the laryngeal vestibule, intact cough reflex Grade II = aspiration < 10 % of the bolus, intact cough reflex Grade III = aspiration of < 10 % of the bolus, reduced cough reflex or aspiration of > 10 % of the bolus, intact cough reflex Grade IV = aspiration of > 10 % of the bolus, reduced cough reflex Penetration-Aspiration Scale Score Thin Liquid via teaspoon: Result: 1= does not enter airway Thin Liquid via teaspoon Trial 2: Result: 1= does not enter airway Thin Liquid via large single sip: cup: Result: 1= does not enter airway [place] Thick Liquid via large single sip: cup: Result: 1= does not enter airway Pudding via teaspoon: Result: 1= does not enter airway Comment: Esophageal screen Cookie: Result: 1= does not enter airway Thin Liquid via sequential sips:straw: Result: 1= does not enter airway Oral Phase Labial Seal: No Labial Escape Tongue Control During Bolus Hold: Cohesive bolus between tongue to palatal seal Bolus Preparation/Mastication: Slow prolonged chewing/mashing with complete recollection Bolus Transport/Lingual Motion: Brisk tongue motion Oral Residue: Residue collection on oral structures (piecemeal of cookie) Pharyngeal Phase Initiation of Pharyngeal Swallow: Bolus head in pyriforms Soft Palate Elevation: Trace column of contrast/air between soft palate and pharyngeal wall Laryngeal Elevation: Comp. Superior move thyroid cart w/comp. apprx arytenoid cart-epig pet Anterior Hyoid Excursion: Complete anterior movement Epiglottic Movement: Complete inversion Laryngeal Vestibule Closure at Height of Swallow: Complete; no air/contrast in laryngeal vestibule Pharyngeal Stripping Wave: Present - complete Pharyngoesophageal Segment Opening: Parital distension and partial duration; parital obstruction of flow Tongue Base Retraction: Narrow column of contrast between tongue base & post. pharyngeal wall Pharyngeal Residue: Collection of residue within or on pharyngeal structures Esophageal Phase Esophageal Clearance: Esophageal retention Diagnosis/Impression Diagnosis: Oropharyngeal swallow function grossly WNL; Esophageal dysphagia R13.14 Impression: Oropharyngeal swallow function is grossly WNL. The patient presents with mild delay with swallow onset; however, good airway closure during the swallow, and mild-trace pharyngeal residues which clear with multiple swallows used as needed. She demonstrated timely and effective mastication and piecemeal deglutition of cookie. No aspiration observed with any trials during the study. Large pouch-like collection of barium suspicious for Zenker's diverticulum, which was reviewed and confirmed by radiologist, Dr. Argueta. SEE esophageal retention in images in PACS across all liquid, pudding, and cookie trials. Figure 1. Cookie trial with pouch-like collection of barium. Recommendations Diet: Regular Textures (Easy to Chew Textures IDDSI Level 7) and Thin Liquids Comment: Meds crushed in applesauce Compensatory Strategies: Small Bites, Small Sips, Slow Rate, Alternate bites/solids and sips/liquids (1:1 ratio), Sitting upright and Remain sitting upright for 30 minutes after PO intake Recommend Repeat Modified Barium Swallow: No Need for Skilled Speech Therapy Services: No Recommended Referrals: ENT Consult (CREW PERSON recommended referral to 's Dr. Emanuel or Dr. Farias for intervention for suspected Zenker's diverticulum confirmed by radiologist, Dr. Argueta.) Education Completed: 1. Described result of evaluation. Status Active ST Patient: Active Contact Information [facility] Speech Therapy:: Karina Miranda M.A. [facility] Speech-Language Pathologist [facility] [address] [place] [address] [phone]
== END | disposition home or self-care (01) ==
LOC: RAD 12:41
PROVIDERS: PCP Family Medicine; Visit Provider Family Medicine
DX: R13.12 Dysphagia, oropharyngeal phase (principal)
CPT/HCPCS: 74230; 92611

== ENCOUNTER → 2023-05-14 | Outpatient (CLI) | payer MEDICARE, MEDICAID, SELFPAY ==
--- NOTE | 2023-05-14 08:50 | RAD_ITS ---
STUDY: X-RAY - ESOPHAGUS (BARIUM SWALLOW) WITH FLUOROSCOPY REASON FOR EXAM: Female, 73 years old. Diverticulum of esophagus, acquired TECHNIQUE: 18 view(s) of the esophagus were obtained following swallowing of barium. FLUOROSCOPY TIME (if supplied): (43 seconds) minutes/seconds COMPARISON: None. FINDINGS: There is no demonstrated esophageal foreign body. There is a 6.8 mm Zenker''s diverticulum. Normal gastroesophageal junction, without a demonstrated hiatal hernia. The patient was unable to swallow the barium tablet. There is atherosclerotic calcification of the aortic arch with tortuosity of the descending aorta. Normal visualized pulmonary parenchyma. Normal visualized osseous structures of the thorax. RAD/Esophagus Dual Contrast IMPRESSION: 6.8 mm Zenker''s diverticulum. Electronically Signed: Abhi Argueta MD at 9:57 EST ,
--- OUTSIDE RECORDS SUMMARY | 2023-05-14 08:59 | XMS RPT_ITS | CCD ---
Author Name Unknown Address [address] [place] [address] Organization [facility] Care Team Providers Care Service Advocate Contact Name Role Phone Unavailable Primary Care Provider Unavailjuan c e Domingo Aguiar DO Primary Care Provider BENNY NARANJO Attending Unavailable BENNY NARANJO Admitting Unavailable DOMINGO AGUIAR Primary Care Unavailable BENNY NARANJO Attending Unavailable DOMINGO AGUIAR Primary Care Unavailable BENNY NARANJO Attending Unavailable DOMINGO AGUIAR Primary Care Unavailable DOMINGO AGUIAR Primary Care Unavailable SYSTEM, PROVIDER NOT IN Attending Unavaila ble SYSTEM, PROVIDER NOT IN Referring Unavaila ble SYSTEM, PROVIDER NOT IN Attending Unavaila ble SYSTEM, PROVIDER NOT IN Referring Unavaila ble DOMINGO AGUIAR Primary Care Unavailable Problems Problem Classification Problem Date Documented Da te Episodic/Chronic Esophageal disorders (12 sources) Zenker's diverticulum; Translations: [Diverticulum of esophagus, acquired] Onset: 04-23-2023 Episodic Other gastrointestinal disorders (7 sources) Oropharyngeal dysphagia; Translations: [Dysphagia, oropharyngeal phase] Onset: 04-23-2023 Episodic Other gastrointestinal disorders (4 sources) Dysphagia, oropharyngeal phase; Translations: [Dysphagia, oropharyngeal phase] Onset: 04-23-2023 Episodic Vital Signs Date Time Vital Sign Value Performing Clinician Faci lity 04-23-2023 10:27-0500 Body height 157.5 cm Benny Naranjo MD Work Phone: [facility] 04-23-2023 10:27-0500 Body mass index (BMI) [Ratio] 28.5 kg/m2 Benny Naranjo MD Work Phone: [facility] 04-23-2023 10:27-0500 Body temperature 98.1 [degF] Benny Naranjo MD Work Phone: [facility] 04-23-2023 10:27-0500 Body weight 70.67 kg Benny Naranjo MD Work Phone: [facility] 03-21-2022 09:11-0500 Body weight 69.94 kg Benny Naranjo MD Work Phone: [facility] 03-21-2022 09:11-0500 Diastolic blood pressure 86 mm[Hg] Benny Naranjo MD Work Phone: [facility] 03-21-2022 09:11-0500 Heart rate 74 /min Benny Naranjo MD Work Phone: [facility] 03-21-2022 09:11-0500 Respiratory rate 18 /min Benny Naranjo MD Work Phone: [facility] 03-21-2022 09:11-0500 SaO2% (BldA) [Mass fraction] 97 % Benny Naranjo MD Work Phone: [facility] 03-21-2022 09:11-0500 Systolic blood pressure 133 mm[Hg] Benny Naranjo MD Work Phone: [facility] Encounters Encounter Date Encounter Type Care Provider Facility Start: 04-27-2023 End: 04-28-2023 ambulatory PROVIDER NOT IN SYSTEM [facility] Start: 04-25-2023 ambulatory BENNY NARANJO [facility] Start: 04-23-2023 End: 04-23-2023 ambulatory BENNYDEEPA NARANJO [facility] Start: 04-23-2023 End: 04-23-2023 Office outpatient visit 25 minutes Benny Naranjo MD Work Phone: [facility] Plan of Treatment Date Care Activity Detail Author Start: 06-26-2023 End: 06-26-2023 Follow-up encounter 06/26/2023 8:45 AM EDT Follow-Up [facility] [address] [place] [address] Benny Naranjo MD [address] [place] [id number] [facility] [place] Start: 06-13-2023 End: 06-13-2023 Admission to same day surgery center 06/13/2023 7:30 AM EDT - 06/13/2023 8:32 AM EDT Surgery [facility] [address] [place] [address] Benny Naranjo MD [address] [place] [address] [facility] Payers Date Payer Category Payer Medicare [id number] 2019 Medicare [id number] 1950 Unknown [id number] 1950 Unknown [id number] 1950 Unknown [id number] 1950 Unknown [id number] 1950 Unknown [id number] 1950 Unknown [id number] Medicaid [employer] MEDICAID [employer] MEDICAID [id number] Effective for all dates [phone] [address] [place] [address] 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 [facility] Start: 1950 Sex Assigned At Not on file [facility] Start: 03-21-2022 Tobacco smoking status NHIS Never sm oked tobacco [facility] Start: 03-21-2022 Tobacco use and exposure Smokeless t obacco non-user [facility] Start: 03-21-2022 End: 04-23-2023 Alcohol intake Current drinker of alcohol (finding) [facility] Start: 03-11-2022 End: 03-21-2022 Exposure to SARS-CoV-2 (event) Not sure [facility] Start: 03-21-2022 End: 04-23-2023 History of Social function [facility] Start: 03-21-2022 End: 04-23-2023 Tobacco use panel [facility] Clinical Notes 03-21-2022 to 04-26-2023 Addendum Note - Benny Naranjo MD - 04/26/2023 8:51 AM ESTAddendum Note - Benny Naranjo MD - 04/26/2023 8:51 AM ESTPatient InstructionsPatient Instructions Note Date & Type Note Facility 04-26-2023 Note Addended by: BENNY NARANJO on: 04/26/2023 08:51 AM Modules accepted: Orders [facility] 04-26-2023 Miscellaneous Notes Addended by: BENNY NARANJO on: 04/26/2023 08:51 AM Modules accepted: Orders documented in this encounter [facility] 04-23-2023 Instructions Benny Naranjo MD - 04/23/2023 11:25 AM EST LARYNGOSCOPY AND VOICE SURGERY The larynx (voice box), vocal folds, and other structures of the throat are involved in breathing, swallowing, and voicing. Common problems of the throat include tumors or suspicion of cancer, vocal nodules and polyps, hoarseness, motion impairment of the vocal folds, and breathing or swallowing problems. Surgery or biopsy may be needed to evaluate or treat disease of the larynx and throat. REASONS FOR SURGERY- How is the decision made? Surgery on the larynx and throat is a decision to be made between the surgeon and the patient or family. Generally, surgery is recommended when one or more of the following symptoms or findings are noted: ? A lesion suspicious for cancer requires further inspection, biopsy, or excision ? A mass, tumor, cyst, or infection in the larynx or throat has been identified that cannot be managed with medication, voice therapy, or other treatment ? Voice problems or hoarseness due to abnormalities of the vocal folds ? Evaluation of the larynx and throat to identify causes of pain, breathing or swallowing problems, possibly due to tumors, infection, congenital abnormality, injury, or anatomic or functional problem of the laryngeal or throat structures ? Other problems as discussed with your doctor SURGICAL TREATMENT- What are the Risks, Alternatives, Potential Complications, and Benefits? ? Risks- The risks from laryngoscopy and voice surgery include: injury to the teeth, gums, tongue, throat tissues, vocal folds and larynx, breathing or swallowing tube, and may result in temporary or, rarely permanent, cosmetic deformity, pain, bleeding, change or loss of voice, swallowing problems, breathing problems, need for additional surgical treatment, or other specific risks as discussed with your doctor. There is a small risk of severe breathing problems requiring tracheostomy (surgical breathing tube through the neck). There is also a risk of complications from anesthesia. ? Alternatives- Some conditions of the larynx and throat structures may be observed, treated with voice therapy, or with medication. Some cancerous lesions may be treated with radiation or treatment other than surgery, although a biopsy to confirm cancer is often needed. Sometimes a decision to not have treatment can have serious consequences that you should discuss with your doctor. ? Complications- Complications of surgery on the larynx and throat generally include: obstruction of breathing from swelling or bleeding; infection, sometimes requiring additional surgical treatment; injury with serious functional consequences to swallowing or breathing; hoarseness or changes in voice. Severe bleeding, permanent injury, or is uncommon. Notify your doctor immediately if breathing difficulty is noted after surgery. ? Benefits- Most larynx and throat surgery is without serious complications and with a good outcome. RECOVERY- What should I expect? Recovery biopsy or surgery of the larynx and throat is usually rapid and generally lasts 1-2 weeks. Recovery from infections or cancer may require longer periods. Expect to go home the same day from surgery unless informed otherwise by your doctor. Once you have gone home, common events in the recovery period and expectations of what is normal are listed below. Call your doctor if you have any questions or concerns that are not answered here. ? Pain- Pain is an expected part of recovery after surgery and is usually mild. Pain may be noted with swallowing or speaking. Over the counter medications such as Tylenol?, Aspirin?, Advil?, Motrin?, Aleve?, and ibuprofen are generally adequate for relief of pain. Take only the medication prescribed by your doctor. If pain worsens or is not relieved by the pain medication taken as prescribed, call your doctor. ? Difficulty with breathing or swallowing- Please notify your doctor immediately if severe problems with breathing or swallowing develop. Mild changes may be normal and should improve with healing. ? Nausea and vomiting- These are usually due to the effects of anesthesia and should subside in the first day or two. If they continue, are related to taking the pain medication, or contain blood, notify your doctor. ? Fever- Notify your doctor for fever above 102.5 F, or one that persists for greater than 3 days. ? Eating and drinking- You may resume your regular diet after surgery unless a special diet is advised by your doctor. ? Activity- It is usually safe to resume normal activities unless advised otherwise by your doctor. Do not drive or operate machinery while on narcotic pain medication. ? MEDICATIONS- Ask your doctor about resuming your home medications. Do not take herbal medications without asking your doctor as these often have blood thinning properties which can increase the risk of bleeding. CONTINUING CARE- What additional care do I need? After you are discharged from the hospital, your doctor will see you for follow-up evaluation in approximately two weeks after surgery unless another time has been arranged. Call the office if an appointment has not been previously scheduled. You will likely be seen for several visits to ensure that healing is progressing well and that no complications or unexpected problems have been encountered. Additional medication, voice, or swallowing therapy may be needed to treat some conditions. If the surgery was performed for the evaluation or treatment of cancer, additional surgery, radiation treatment, or chemotherapy may be advised as well as regular follow-up visits to monitor for any recurrent disease for many years may be advised. Smoking and alcohol abuse should be avoided to promote healing and reduce the risk of complications and recurrent disease. NOTICE: THIS DOCUMENT IS INTENDED SOLELY FOR PATIENT EDUCATIONAL PURPOSES AND IS PROVIDED A COURTESY TO PATIENTS OF DR. BENNY NARANJO MD. IT IS NOT INTENDED A SUBSTITUTE FOR PROFESSIONAL MEDICAL CARE OR ADVICE. THE PATIENT SHOULD SEEK ADVICE FROM THE PHYSICIAN IF THERE ARE ANY QUESTIONS ABOUT THE CONTENTS OR DIRECTIONS PROVIDED IN THIS DOCUMENT documented in this encounter [facility] 04-23-2023 Instructions Benny Naranjo MD - 04/23/2023 11:25 AM EST LARYNGOSCOPY AND VOICE SURGERY The larynx (voice box), vocal folds, and other structures of the throat are involved in breathing, swallowing, and voicing. Common problems of the throat include tumors or suspicion of cancer, vocal nodules and polyps, hoarseness, motion impairment of the vocal folds, and breathing or swallowing problems. Surgery or biopsy may be needed to evaluate or treat disease of the larynx and throat. REASONS FOR SURGERY- How is the decision made? Surgery on the larynx and throat is a decision to be made between the surgeon and the patient or family. Generally, surgery is recommended when one or more of the following symptoms or findings are noted: ? A lesion suspicious for cancer requires further inspection, biopsy, or excision ? A mass, tumor, cyst, or infection in the larynx or throat has been identified that cannot be managed with medication, voice therapy, or other treatment ? Voice problems or hoarseness due to abnormalities of the vocal folds ? Evaluation of the larynx and throat to identify causes of pain, breathing or swallowing problems, possibly due to tumors, infection, congenital abnormality, injury, or anatomic or functional problem of the laryngeal or throat structures ? Other problems as discussed with your doctor SURGICAL TREATMENT- What are the Risks, Alternatives, Potential Complications, and Benefits? ? Risks- The risks from laryngoscopy and voice surgery include: injury to the teeth, gums, tongue, throat tissues, vocal folds and larynx, breathing or swallowing tube, and may result in temporary or, rarely permanent, cosmetic deformity, pain, bleeding, change or loss of voice, swallowing problems, breathing problems, need for additional surgical treatment, or other specific risks as discussed with your doctor. There is a small risk of severe breathing problems requiring tracheostomy (surgical breathing tube through the neck). There is also a risk of complications from anesthesia. ? Alternatives- Some conditions of the larynx and throat structures may be observed, treated with voice therapy, or with medication. Some cancerous lesions may be treated with radiation or treatment other than surgery, although a biopsy to confirm cancer is often needed. Sometimes a decision to not have treatment can have serious consequences that you should discuss with your doctor. ? Complications- Complications of surgery on the larynx and throat generally include: obstruction of breathing from swelling or bleeding; infection, sometimes requiring additional surgical treatment; injury with serious functional consequences to swallowing or breathing; hoarseness or changes in voice. Severe bleeding, permanent injury, or is uncommon. Notify your doctor immediately if breathing difficulty is noted after surgery. ? Benefits- Most larynx and throat surgery is without serious complications and with a good outcome. RECOVERY- What should I expect? Recovery biopsy or surgery of the larynx and throat is usually rapid and generally lasts 1-2 weeks. Recovery from infections or cancer may require longer periods. Expect to go home the same day from surgery unless informed otherwise by your doctor. Once you have gone home, common events in the recovery period and expectations of what is normal are listed below. Call your doctor if you have any questions or concerns that are not answered here. ? Pain- Pain is an expected part of recovery after surgery and is usually mild. Pain may be noted with swallowing or speaking. Over the counter medications such as Tylenol?, Aspirin?, Advil?, Motrin?, Aleve?, and ibuprofen are generally adequate for relief of pain. Take only the medication prescribed by your doctor. If pain worsens or is not relieved by the pain medication taken as prescribed, call your doctor. ? Difficulty with breathing or swallowing- Please notify your doctor immediately if severe problems with breathing or swallowing develop. Mild changes may be normal and should improve with healing. ? Nausea and vomiting- These are usually due to the effects of anesthesia and should subside in the first day or two. If they continue, are related to taking the pain medication, or contain blood, notify your doctor. ? Fever- Notify your doctor for fever above 102.5 F, or one that persists for greater than 3 days. ? Eating and drinking- You may resume your regular diet after surgery unless a special diet is advised by your doctor. ? Activity- It is usually safe to resume normal activities unless advised otherwise by your doctor. Do not drive or operate machinery while on narcotic pain medication. ? MEDICATIONS- Ask your doctor about resuming your home medications. Do not take herbal medications without asking your doctor as these often have blood thinning properties which can increase the risk of bleeding. CONTINUING CARE- What additional care do I need? After you are discharged from the hospital, your doctor will see you for follow-up evaluation in approximately two weeks after surgery unless another time has been arranged. Call the office if an appointment has not been previously scheduled. You will likely be seen for several visits to ensure that healing is progressing well and that no complications or unexpected problems have been encountered. Additional medication, voice, or swallowing therapy may be needed to treat some conditions. If the surgery was performed for the evaluation or treatment of cancer, additional surgery, radiation treatment, or chemotherapy may be advised as well as regular follow-up visits to monitor for any recurrent disease for many years may be advised. Smoking and alcohol abuse should be avoided to promote healing and reduce the risk of complications and recurrent disease. NOTICE: THIS DOCUMENT IS INTENDED SOLELY FOR PATIENT EDUCATIONAL PURPOSES AND IS PROVIDED A COURTESY TO PATIENTS OF DR. BENNY NARANJO MD. IT IS NOT INTENDED A SUBSTITUTE FOR PROFESSIONAL MEDICAL CARE OR ADVICE. THE PATIENT SHOULD SEEK ADVICE FROM THE PHYSICIAN IF THERE ARE ANY QUESTIONS ABOUT THE CONTENTS OR DIRECTIONS PROVIDED IN THIS DOCUMENT documented in this encounter [facility] 04-23-2023 History of Presen t illness Narrative [facility] [address] [facility] [place] [address] [facility] [address] Dept: [phone] MD Phylicia Arizmendi 73 y.o. 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 Past Medical History: Diagnosis Date HL (hearing loss) No current outpatient medications on file. No Known Allergies Past Surgical History: Procedure Laterality Date GALLBLADDER Social History Socioeconomic History Marital status: Unknown Tobacco Use Smoking status: Never Smokeless tobacco: Never Vaping Use Vaping Use: Never used Substance and Sexual Activity Alcohol use: Yes Drug use: Never History reviewed. No pertinent family history. PHYSICAL EXAM: The patient was examined today 04/23/2023 with findings as follows: CONSTITUTIONAL: General Appearance: well-appearing, nontoxic, alert, no acute distress Communication: understanding at normal conversational tones, normal voicing, speech intelligible HEAD/FACE: Head: atraumatic, normocephalic, no lesions Facial Inspection: no lesions, healthy skin Facial Strength: motor strength normal, symmetric strength, symmetric movement Sinuses: no sinus tenderness Salivary Glands: no enlargements of parotid glands, no tenderness of parotid glands, no masses of parotid glands, clear salivary flow on palpation from Stensen's ducts, no duct stones of Stensen's duct, no enlargement of submandibular glands, no tenderness of submandibular glands, no masses of submandibular glands, clear salivary flow from [place]'s ducts, no stones of [place]'s ducts Temporomandibular Joint: no crepitus with motion, no tenderness on palpation, no trismus, motion symmetric EYES: Pupils: PERRLA, extra-ocular movements intact, no nystagmus, sclera white, no redness of eyes, no watering of eyes EARS: Bilateral External Ears: no pits, no tags Right External Ear: normally formed, no lesions, no mastoid tenderness Left External Ear: normally formed, no lesions, no mastoid tenderness Right External Auditory Canal: normal, healthy skin, no obstructing cerumen, no discharge Left External Auditory Canal: normal, healthy skin, no obstructing cerumen, no discharge Right Tympanic Membrane: normal landmarks, translucent, mobile to pneumatic otoscopy, no perforation Left Tympanic Membrane: normal landmarks, translucent, mobile to pneumatic otoscopy, no perforation Hearing: intact to spoken voice, intact to finger rub, Brooke midline, Right Ear: Rinne AC>BC, Left Left Ear: Rinne AC>BC NOSE: Nasal Skin: no lesions, no lacerations, no scars Nasal Dorsum: symmetric with no visible or palpable deformities Nasal Tip: normal symmetric nasal tip, normal nasal valves Nasal Mucosa: normal, pink and moist Septum: not markedly deformed, midline, no exposed vessels, no bleeding, no septal granuloma Turbinates: normal size and conformation Nasopharynx: normal ORAL CAVITY/MOUTH: Lips, teeth, gums: normal lips, normal gums, dentition intact, no dental pain on palpation Oral Mucosa: normal, moist, no lesions Palate: normal hard palate, normal soft palate, symmetric palatal elevation Floor of Mouth: normal floor of mouth Tongue: normal tongue, no lesions, no edema, no masses, normal mucosa, mobile Tonsils: normal tonsils, symmetric, no lesions Posterior pharynx: normal NECK: Neck: no masses, trachea midline, normal range of motion, no cysts or pits, no tenderness to palpation Thyroid: normal thyroid, no enlargement, no tenderness, no nodules LYMPH NODES: Cervical: no palpable lymph node enlargement SKIN: General Appearance: no lesions, warm and dry, normal turgor, no bruising NEUROLOGICAL SYSTEM: Orientation: oriented to time, oriented to place, oriented to person Cranial Nerves: Cranial Nerves II-XII intact, normal facial movement PSYCHIATRIC: Mood and affect: normal mood, normal affect Assessment and Plan: She presents with some difficulty with some foods after an initial very good result after treatment of a Zenker's diverticulum. Recent barium swallow shows a recurrent large diverticulum with retention of barium contrast. I have reviewed her radiology report from this recent swallow study as well as the speech therapy notes, as well as her prior test results that had initially shown an improved swallow after her initial treatment. This suggests there is still some portion of the cricopharyngeus intact from her previous surgery. Repeat endoscopic treatment versus open approach is discussed. She is not amenable to open surgery, but is agreeable to an endoscopic treatment. The rationale for any prescribed radiographic or endoscopic evaluation, speech therapy evaluation, or other intervention is discussed. The patient and/or caregiver is advised on the risks of dysphagia to include but not limited to potential entry of food into the lungs with impairment of breathing and increased risk of pneumonia, nutritional deficit from inadequate caloric intake, weight loss, fatigue, poor wound healing, and exacerbation of other chronic disease processes. The symptom management of dysphagia specific to the patient's exam findings and complaints such as the avoidance of problem foods, modification of diet, and the practice of taking in small quantities of foods or thickening of liquids, alternating solids and liquids, the use of carbonation and temperature for improved sensory input to reduce aspiration risk is discussed. The patient and/or caregiver is able to state an understanding of these recommendations and is agreeable to the treatment plan. 1. Zenker diverticulum Case Request Operating Room: [facility] Vital signs Height and weight Vital signs Insert peripheral IV lactated Ringers infusion Intermittent pneumatic compression device Bilat LE Basic Metabolic Panel 2. Oropharyngeal dysphagia Case Request Operating Room: DIVERTICULECTOMY [facility]ENKER ENDOSCOP[facility] No follow-ups on file. The patient and/or caregiver is to notify the office if no improvement or worsening of symptoms is noted prior to the scheduled follow-up for sooner evaluation. The patient and/or caregiver is able to state an understanding of these recommendations and is agreeable to the treatment plan. --Benny Naranjo MD on 04/23/2023 at 11:25 AM An electronic signature was used to authenticate this note. Review of Systems Constitutional: Negative. HENT: Negative. Eyes: Negative. Respiratory: Negative. Cardiovascular: Negative. Gastrointestinal: Negative. Endocrine: Negative. Genitourinary: Negative. Musculoskeletal: Negative. Skin: Negative. Allergic/Immunologic: Negative. Neurological: Negative. Psychiatric/Behavioral: Negative. documented in this encounter [facility] 04-23-2023 History of Presen t illness Narrative [facility] [address] [facility] [place] [address] [facility] [id number] Dept: [phone] MD Phylicia Arizmendi 73 y.o. 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 Past Medical History: Diagnosis Date HL (hearing loss) No current outpatient medications on file. No Known Allergies Past Surgical History: Procedure Laterality Date GALLBLADDER Social History Socioeconomic History Marital status: Unknown Tobacco Use Smoking status: Never Smokeless tobacco: Never Vaping Use Vaping Use: Never used Substance and Sexual Activity Alcohol use: Yes Drug use: Never History reviewed. No pertinent family history. PHYSICAL EXAM: The patient was examined today 04/26/2023 with findings as follows: CONSTITUTIONAL: General Appearance: well-appearing, nontoxic, alert, no acute distress Communication: understanding at normal conversational tones, normal voicing, speech intelligible HEAD/FACE: Head: atraumatic, normocephalic, no lesions Facial Inspection: no lesions, healthy skin Facial Strength: motor strength normal, symmetric strength, symmetric movement Sinuses: no sinus tenderness Salivary Glands: no enlargements of parotid glands, no tenderness of parotid glands, no masses of parotid glands, clear salivary flow on palpation from Stensen's ducts, no duct stones of Stensen's duct, no enlargement of submandibular glands, no tenderness of submandibular glands, no masses of submandibular glands, clear salivary flow from [place]'s ducts, no stones of [place]'s ducts Temporomandibular Joint: no crepitus with motion, no tenderness on palpation, no trismus, motion symmetric EYES: Pupils: PERRLA, extra-ocular movements intact, no nystagmus, sclera white, no redness of eyes, no watering of eyes EARS: Bilateral External Ears: no pits, no tags Right External Ear: normally formed, no lesions, no mastoid tenderness Left External Ear: normally formed, no lesions, no mastoid tenderness Right External Auditory Canal: normal, healthy skin, no obstructing cerumen, no discharge Left External Auditory Canal: normal, healthy skin, no obstructing cerumen, no discharge Right Tympanic Membrane: normal landmarks, translucent, mobile to pneumatic otoscopy, no perforation Left Tympanic Membrane: normal landmarks, translucent, mobile to pneumatic otoscopy, no perforation Hearing: intact to spoken voice, intact to finger rub, Brooke midline, Right Ear: Rinne AC>BC, Left Left Ear: Rinne AC>BC NOSE: Nasal Skin: no lesions, no lacerations, no scars Nasal Dorsum: symmetric with no visible or palpable deformities Nasal Tip: normal symmetric nasal tip, normal nasal valves Nasal Mucosa: normal, pink and moist Septum: not markedly deformed, midline, no exposed vessels, no bleeding, no septal granuloma Turbinates: normal size and conformation Nasopharynx: normal ORAL CAVITY/MOUTH: Lips, teeth, gums: normal lips, normal gums, dentition intact, no dental pain on palpation Oral Mucosa: normal, moist, no lesions Palate: normal hard palate, normal soft palate, symmetric palatal elevation Floor of Mouth: normal floor of mouth Tongue: normal tongue, no lesions, no edema, no masses, normal mucosa, mobile Tonsils: normal tonsils, symmetric, no lesions Posterior pharynx: normal NECK: Neck: no masses, trachea midline, normal range of motion, no cysts or pits, no tenderness to palpation Thyroid: normal thyroid, no enlargement, no tenderness, no nodules LYMPH NODES: Cervical: no palpable lymph node enlargement SKIN: General Appearance: no lesions, warm and dry, normal turgor, no bruising NEUROLOGICAL SYSTEM: Orientation: oriented to time, oriented to place, oriented to person Cranial Nerves: Cranial Nerves II-XII intact, normal facial movement PSYCHIATRIC: Mood and affect: normal mood, normal affect Assessment and Plan: She presents with some difficulty with some foods after an initial very good result after treatment of a Zenker's diverticulum. Recent barium swallow shows a recurrent large diverticulum with retention of barium contrast. I have reviewed her radiology report from this recent swallow study as well as the speech therapy notes, as well as her prior test results that had initially shown an improved swallow after her initial treatment. This suggests there is still some portion of the cricopharyngeus intact from her previous surgery. Repeat endoscopic treatment versus open approach is discussed. She is not amenable to open surgery, but is agreeable to an endoscopic treatment. The rationale for any prescribed radiographic or endoscopic evaluation, speech therapy evaluation, or other intervention is discussed. The patient and/or caregiver is advised on the risks of dysphagia to include but not limited to potential entry of food into the lungs with impairment of breathing and increased risk of pneumonia, nutritional deficit from inadequate caloric intake, weight loss, fatigue, poor wound healing, and exacerbation of other chronic disease processes. The symptom management of dysphagia specific to the patient's exam findings and complaints such as the avoidance of problem foods, modification of diet, and the practice of taking in small quantities of foods or thickening of liquids, alternating solids and liquids, the use of carbonation and temperature for improved sensory input to reduce aspiration risk is discussed. The patient and/or caregiver is able to state an understanding of these recommendations and is agreeable to the treatment plan. 1. Zenker diverticulum Case Request Operating Room: DIVERTICULECTOMY [facility]KER ENDOSCOPIC Vital signs Height and weight Vital signs Insert peripheral IV lactated Ringers infusion Intermittent pneumatic compression device Bilat LE Basic Metabolic Panel XR Esophagram Swallow Study 2. Oropharyngeal dysphagia Case Request Operating Room: DIVERTICULECTOMY ZENKER ENDOSCOPIC No follow-ups on file. The patient and/or caregiver is to notify the office if no improvement or worsening of symptoms is noted prior to the scheduled follow-up for sooner evaluation. The patient and/or caregiver is able to state an understanding of these recommendations and is agreeable to the treatment plan. --Benny Naranjo MD on 04/26/2023 at 8:51 AM An electronic signature was used to authenticate this note. ADDENDUM: Her outside studies from 2019, 2021, and 2023 are reviewed. 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 This is similar in the most recent study. There is some retention of the contrast material at the base of the imaging and barium swallow for full evaluation is suggested as the patient prefers to avoid surgical management if possible. Review of Systems Constitutional: Negative. HENT: Negative. Eyes: Negative. Respiratory: Negative. Cardiovascular: Negative. Gastrointestinal: Negative. Endocrine: Negative. Genitourinary: Negative. Musculoskeletal: Negative. Skin: Negative. Allergic/Immunologic: Negative. Neurological: Negative. Psychiatric/Behavioral: Negative. documented in this encounter [facility] 03-21-2022 History of Presen t illness Narrative [facility] [address] [facility] [place] [address] [facility] [address] Dept: [phone] MD Phylicia Arizmendi 72 y.o. female Patient presents with a chief complaint of trouble swallowing (New pt/) BP 133/86 Pulse 74 Resp 18 Wt 69.9 kg (154 lb 3.2 oz) SpO2 97% History of Presenting Illness: The patient/caregiver reports a history of complaint with the following features: Onset: ongoing in last year Timing: with swallowing Duration: 6 months Quality: swallowing doesn't seem as smooth Location: throat Severity: pain none Risk factors: Zenker's diverticulum treated a year ago Alleviating factors: softer foods Aggravating factors: chunky foods like nuts, peas, meat, trouble with pills Associated factors: no choking with eating Review of systems covering 10 systems is reviewed and pertinent positives and negatives are noted as above. Past Medical History: Diagnosis Date HL (hearing loss) No current outpatient medications on file. No Known Allergies Past Surgical History: Procedure Laterality Date GALLBLADDER Social History Socioeconomic History Marital status: Unknown Tobacco Use Smoking status: Never Smokeless tobacco: Never Vaping Use Vaping Use: Never used Substance and Sexual Activity Alcohol use: Yes Drug use: Never History reviewed. No pertinent family history. PHYSICAL EXAM: The patient was examined today 03/21/2022 with findings as follows: CONSTITUTIONAL: General Appearance: well-appearing, nontoxic, alert, no acute distress Communication: understanding at normal conversational tones, normal voicing, speech intelligible HEAD/FACE: Head: atraumatic, normocephalic, no lesions Facial Inspection: no lesions, healthy skin Facial Strength: motor strength normal, symmetric strength, symmetric movement Sinuses: no sinus tenderness Salivary Glands: no enlargements of parotid glands, no tenderness of parotid glands, no masses of parotid glands, clear salivary flow on palpation from Stensen's ducts, no duct stones of Stensen's duct, no enlargement of submandibular glands, no tenderness of submandibular glands, no masses of submandibular glands, clear salivary flow from [place]'s ducts, no stones of [place]'s ducts Temporomandibular Joint: no crepitus with motion, no tenderness on palpation, no trismus, motion symmetric EYES: Pupils: PERRLA, extra-ocular movements intact, no nystagmus, sclera white, no redness of eyes, no watering of eyes EARS: Bilateral External Ears: no pits, no tags Right External Ear: normally formed, no lesions, no mastoid tenderness Left External Ear: normally formed, no lesions, no mastoid tenderness Right External Auditory Canal: normal, healthy skin, no obstructing cerumen, no discharge Left External Auditory Canal: normal, healthy skin, no obstructing cerumen, no discharge Right Tympanic Membrane: normal landmarks, translucent, mobile to pneumatic otoscopy, no perforation Left Tympanic Membrane: normal landmarks, translucent, mobile to pneumatic otoscopy, no perforation Hearing: intact to spoken voice, intact to finger rub, Brooke midline, Right Ear: Rinne AC>BC, Left Left Ear: Rinne AC>BC NOSE: Nasal Skin: no lesions, no lacerations, no scars Nasal Dorsum: symmetric with no visible or palpable deformities Nasal Tip: normal symmetric nasal tip, normal nasal valves Nasal Mucosa: normal, pink and moist Septum: not markedly deformed, midline, no exposed vessels, no bleeding, no septal granuloma Turbinates: normal size and conformation Nasopharynx: normal ORAL CAVITY/MOUTH: Lips, teeth, gums: normal lips, normal gums, dentition intact, no dental pain on palpation Oral Mucosa: normal, moist, no lesions Palate: normal hard palate, normal soft palate, symmetric palatal elevation Floor of Mouth: normal floor of mouth Tongue: normal tongue, no lesions, no edema, no masses, normal mucosa, mobile Tonsils: normal tonsils, symmetric, no lesions Posterior pharynx: normal HYPOPHARYNX/LARYNX: Hypopharynx: normal hypopharynx, normal tongue base, normal pyriform sinus with foamy salivary retention, normal vallecula with scant foamy salivary retention Larynx: normal epiglottis, normal false vocal cords, normal true vocal cords, normal glottic mobility, no arytenoid edema, no post-cricoid edema, no subglottic stenosis NECK: Neck: no masses, trachea midline, normal range of motion, no cysts or pits, no tenderness to palpation Thyroid: normal thyroid, no enlargement, no tenderness, no nodules LYMPH NODES: Cervical: no palpable lymph node enlargement SKIN: General Appearance: no lesions, warm and dry, normal turgor, no bruising NEUROLOGICAL SYSTEM: Orientation: oriented to time, oriented to place, oriented to person Cranial Nerves: Cranial Nerves II-XII intact, normal facial movement PSYCHIATRIC: Mood and affect: normal mood, normal affect Assessment and Plan: She presents with some difficulty with some foods after an initial very good result after treatment of a Zenker's diverticulum. Her recent swallow study showed some retention in the vallecula, but no residual or recurrent diverticulum. She is in need of treatment for osteoporosis and as the oral medications often result in symptomatic esophagitis, alternative treatments may be more appropriate in this setting. The rationale for any prescribed radiographic or endoscopic evaluation, speech therapy evaluation, or other intervention is discussed. The patient and/or caregiver is advised on the risks of dysphagia to include but not limited to potential entry of food into the lungs with impairment of breathing and increased risk of pneumonia, nutritional deficit from inadequate caloric intake, weight loss, fatigue, poor wound healing, and exacerbation of other chronic disease processes. The symptom management of dysphagia specific to the patient's exam findings and complaints such as the avoidance of problem foods, modification of diet, and the practice of taking in small quantities of foods or thickening of liquids, alternating solids and liquids, the use of carbonation and temperature for improved sensory input to reduce aspiration risk is discussed. The patient and/or caregiver is able to state an understanding of these recommendations and is agreeable to the treatment plan. 1. Oropharyngeal dysphagia 2. Zenker diverticulum Ambulatory referral to ENT Return if symptoms worsen or fail to improve. The patient and/or caregiver is to notify the office if no improvement or worsening of symptoms is noted prior to the scheduled follow-up for sooner evaluation. The patient and/or caregiver is able to state an understanding of these recommendations and is agreeable to the treatment plan. --Benny Naranjo MD on 03/21/2022 at 9:41 AM An electronic signature was used to authenticate this note. Review of Systems Constitutional: Negative. HENT: Positive for hearing loss and trouble swallowing. Eyes: Positive for visual disturbance. Respiratory: Negative. Cardiovascular: Negative. Gastrointestinal: Negative. Endocrine: Negative. Genitourinary: Negative. Musculoskeletal: Negative. Skin: Negative. Allergic/Immunologic: Negative. Neurological: Negative. Hematological: Negative. Psychiatric/Behavioral: Negative. documented in this encounter [facility] O[facility] dysphagia- Primary Dysphagia, oropharyngeal phase Zenker diverticulum Diverticulum of esophagus, acquired [facility] Diagnosis Zenker diverticulum- Primary Diverticulum of esophagus, acquired Oropharyngeal dysphagia Dysphagia, oropharyngeal phase Zenker diverticulum Diverticulum of esophagus, acquired Oropharyngeal dysphagia Dysphagia, oropharyngeal phase Zenker diverticulum Diverticulum of esophagus, acquired Oropharyngeal dysphagia Dysphagia, oropharyngeal phase [facility] Diagnosis Zenker diverticulum- Primary Diverticulum of esophagus, acquired Oropharyngeal dysphagia Dysphagia, oropharyngeal phase Zenker diverticulum Diverticulum of esophagus, acquired Oropharyngeal dysphagia Dysphagia, oropharyngeal phase Zenker diverticulum Diverticulum of esophagus, acquired Oropharyngeal dysphagia Dysphagia, oropharyngeal phase [facility] Diagnosis Zenker diverticulum- Primary Diverticulum of esophagus, acquired Oropharyngeal dysphagia Dysphagia, oropharyngeal phase Zenker diverticulum Diverticulum of esophagus, acquired Oropharyngeal dysphagia Dysphagia, oropharyngeal phase Zenker diverticulum Diverticulum of esophagus, acquired Oropharyngeal dysphagia Dysphagia, oropharyngeal phase documented in this encounter [facility] Reason for Referral Specialty Diagnoses / Procedures Referred By Contac t Referred To Contact Otolaryngology Diagnoses Zenker diverticulum Domingo Aguiar, DO [address] [place] [address] Benny Naranjo MD [address] [address] Referral ID Status Reason Start Date Expiration Date V isits Requested Visits Authorized [id number] Authorized 03/16/2022 03/16/2023 1 1 Specialty Diagnoses / Procedures Referred By Contac t Referred To Contact Radiology Diagnoses Zenker diverticulum Procedures XR Esophagram Swallow Study Benny Naranjo MD 335 [facility] [address] [place] [address], [place] [address] Referral ID Status Reason Start Date Expiration Date V isits Requested Visits Authorized [id number] Pending Review 04/26/2023 04/25/2024 1 1 Summary Purpose Family History No Family History Records FoundNo Family History Records FoundNo Family History Records Found Advance Directives No Advanced Directives Records FoundNo Advanced Directives Records FoundNo Advanced Directives Records Found Additional Source Comments Reason for Visit (unrecogniz ed section and content) Specialty Diagnoses / Procedures Referred By Contdeonte t Referred To Contact Otolaryngology Diagnoses Zenker diverticulum Domingo Aguiar DO [address] [place] [address] Benny Naranjo MD 335 [facility] [employer] [address] [place] [address] Referral ID Status Reason Start Date Expiration Date Visits Re quested Visits Authorized [id number] Closed 03/16/2022 03/16/2023 1 1 Reason Comments Follow-up Reason Comments Follow-up Care Teams (unrecognized sec tion and content) Service Advocate Contact Relationship Specialty Start Date End Date Domingo Aguiar DO [address] [place] [id number] PCP - General Family Medicine 04/23/23 INFORMATION SOURCE (unrecogn ized section and content) DATE CREATED AUTHOR AUTHOR'S ORGANIZ ATION 04/29/2023 [facility] DATE CREATED AUTHOR AUTHOR'S ORGANIZ ATION 05/02/2023 [facility] FOR RECORDS PERTAINING TO PATIENTS WHO ARE OR HAVE BEEN ENROLLED IN A CHEMICAL DEPENDENCY/SUBSTANCEABUSE PROGRAM, SOME INFORMATION MAY BE OMITTED. This clinical summary was aggregated from multiple sources. Caution should be exercised in using it in the provision of clinical care. This summary normalizes information from multiple sources, and as a consequence, information in this document may materially change the coding, format and clinical context of patient data. In addition, data may be omitted in some cases. CLINICAL DECISIONS SHOULD BE BASED ON THE PRIMARY CLINICAL RECORDS. [facility] provides no warranty or guarantee of the accuracy or completeness of information in this document.
== END | disposition home or self-care (01) ==
PROVIDERS: PCP Family Medicine; Referring Provider Otolaryngology; Visit Provider Otolaryngology
DX: K22.5 Diverticulum of esophagus, acquired (principal)
CPT/HCPCS: 74221

== ENCOUNTER → 2023-10-18 | Outpatient (CLI) | payer MEDICARE, SELFPAY ==
[2023-10-18 12:35] LABS: Vitamin D,25 Hydroxy 45.4 ng/mL
[2023-10-18 12:51] LABS: ALB/GLOB Ratio 0.9 RATIO (0.9-2.4); AST(SGOT) 18 U/L (15-37); Alanine Aminotransfer ALT/SGPT 23 U/L (13-56); Albumin, Serum 3.3 g/dL (3.2-5.0); Alkaline Phosphatase 77 U/L (45-117); Anion Gap 4 (5-15); BUN 16 mg/dL (7-18); BUN/Creat Ratio 17.3 RATIO (10-20); Calcium,Total 9.2 mg/dL (8.5-10.1); Chloride 109 mmol/L (98-107); Creatinine, Serum 0.93 mg/dL (0.55-1.02); EST Glomerular Filtration Rate 63 mL/min (>60); Est Glom Filt Rate - Afr Amer 76 mL/min (>60); Globulin 3.5 g/dL (2.2-4.2); Glucose 91 mg/dL (74-106); Potassium 4.3 mmol/L (3.5-5.1); Protein, Total 6.8 g/dL (6.4-8.2); Sodium Level 141 mmol/L (136-145)
== END | disposition home or self-care (01) ==
LOC: MTLAB 10:44
PROVIDERS: PCP Family Medicine; Referring Provider Internal Medicine Endocrinology, Diabetes & Metabolism; Visit Provider Internal Medicine Endocrinology, Diabetes & Metabolism
DX: M81.0 Age-related osteoporosis without current pathological fracture (principal); E55.9 Vitamin D deficiency, unspecified
CPT/HCPCS: 36415; 80053; 82306

== ENCOUNTER 2023-12-05 13:55 | Outpatient (CLI) | payer MEDICARE, SELFPAY ==
[2023-12-05 14:18] VITALS: BP 133/86; PULSE 66; RESP 14; TEMP 35.7; O2SAT 97; BMI 28.1
[2023-12-05] MEDS: 0.9% NaCl Peripheral Flush Adult/Peds IV (14:21)
[2023-12-05] MEDS: Zoledronic Acid 5 MG 100 ML 300 MG IV (14:28)
[2023-12-05 14:53] VITALS: BP 130/84; PULSE 69; RESP 16
== END 2023-12-05 23:59 | disposition home or self-care (01) ==
LOC: MEDOUTP 13:55
PROVIDERS: PCP Family Medicine; Referring Provider Internal Medicine Endocrinology, Diabetes & Metabolism; Visit Provider Internal Medicine Endocrinology, Diabetes & Metabolism
DX: M81.0 Age-related osteoporosis without current pathological fracture (principal)
CPT/HCPCS: 96365; A4216; J3489

== ENCOUNTER → 2024-02-18 | Outpatient (CLI) | payer MEDICARE, SELFPAY | END | disposition home or self-care (01) | PROVIDERS: PCP Family Medicine; Referring Provider Family Medicine; Visit Provider Family Medicine | DX: R35.0 Frequency of micturition (principal) | CPT/HCPCS: 87086; 87088 ==

== ENCOUNTER → 2024-03-25 | Outpatient (CLI) | payer MEDICARE, SELFPAY ==
--- NOTE | 2024-03-25 15:19 | BI_ITS ---
MAMMOGRAPHY - BILATERAL SCREENING REASON FOR EXAM: Female, 74 years old. Routine annual screening examination. PERTINENT HISTORY: Non-contributory. TECHNIQUE: Digital bilateral breast kourtney (3D mammographic acquisition) in the CC and MLO projections. 2-D mediolateral oblique (MLO) and craniocaudad (CC) views of both breasts were obtained. CAD: Full Field Digital Mammography with Computer Added Detection was performed. COMPARISON: Comparison is made with prior study January 10, 2022 and September 26, 2018. FINDINGS: Breast Composition: There are scattered areas of fibroglandular density. There are no dominant masses or suspicious calcifications. No other significant abnormalities are identified. There has been no significant change since the prior study. BI/SCRN MAMM (CAD)W/KOURTNEY BILAT IMPRESSION: Stable bilateral screening mammogram. Yearly follow-up mammogram recommended. (A) ASSESSMENT CATEGORY: BIRADS Category 1: Negative. A letter regarding these results will be sent to the patient by the facility within 30 days. Approximately 10% of breast cancers are not detected by mammography. A normal mammogram should not delay biopsy of a clinically suspicious abnormality. [id number] Electronically Signed: Abhi Argueta MD at 8:23 EST ,
== END | disposition home or self-care (01) ==
PROVIDERS: PCP Family Medicine; Referring Provider Family Medicine; Visit Provider Family Medicine
DX: Z12.31 Encounter for screening mammogram for malignant neoplasm of breast (principal)
CPT/HCPCS: 77063; 77067

== ENCOUNTER → 2024-08-14 | Outpatient (CLI) | payer MEDICARE, SELFPAY | END | disposition home or self-care (01) | PROVIDERS: PCP Family Medicine; Referring Provider Nurse Practitioner Family; Visit Provider Nurse Practitioner Family | DX: R19.7 Diarrhea, unspecified (principal) | CPT/HCPCS: 83630; 87177; 87209; 87493 ==

== ENCOUNTER → 2024-11-05 | Outpatient (CLI) | payer MEDICARE, SELFPAY ==
--- OUTSIDE RECORDS SUMMARY | 2024-11-05 08:05 | XMS RPT_ITS | CCD ---
Author Organization [facility] Care Team Providers Care Hand Buffing Wheel Former Name Role Phone Dr. Domingo Aguiar Primary Care Provider [phone] Dr. Tray Serna Attending Provider [phone] Primary Care Provider Dr. Domingo Montilla Primary Care Provider [phone] [address] Tary Serna Attending Provider [phone] Domingo Aguiar Primary Care Provider [phone] Dr. Domingo Aguiar Referring Provider Dr. Ian Leiva Attending Provider [phone] Tray Serna Attending Provider [phone] Domingo Aguiar Primary Care Provider [phone] Dr. Domingo Aguiar Referring Provider Dr. Derrick Montanez Attending Provider Domingo Aguiar DO Primary Care Provider BENNY [...] Unavaila ble DOMINGO AGUIAR Primary Care Unavailable Dr. Domingo Aguiar DO Primary Care Provider Arsh ECONOMIC DEVELOPMENT DIRECTOR-CElizabeth Attending Provider Arsh ECONOMIC DEVELOPMENT DIRECTOR-CElizabeth Referring Provider Dr. Domingo Aguiar DO Referring Provider [phone] Derrick Montanez MD Attending Provider Cosme, Domingo Primary Care Unavailable Jacqui Kelly Attending Unavailable Cosme, Domingo Referring Unavailable Derrick Montanez Attending Unavailable Cosme, Domingo Referring Unavailable Cosme, Domingo Primary Care Unavailable Cosme, Domingo Primary Care Unavailable Cosme, Domingo Attending Unavailable Cosme, Domingo Referring Unavailable Cosme, Domingo Attending Unavailable Cosme, Domingo Referring Unavailable Cosme, Domingo Primary Care Unavailable Elizabeth Caban Attending Unavailable Elizabeth Caban Referring Unavailable Cosme, Domingo Primary Care Unavailable Derrick Montanez Attending Unavailable Derrick Montanez Referring Unavailable Cosme, Domingo Primary Care Unavailable Medications Current Medications Medication Drug Class(es) Dates Sig (Normalized) Sig (Original) acetaminophen 32 mg/ml oral suspension (13 sources) Start: 11-19-2020 take 500 mg by mouth every four hours as needed for pain Acetaminophen 160 mg/5 mL (5 mL) Suspension Active 500 mg PO EVERY 4 HOURS NEEDED as needed for Pain Score 1-5 0 0 November 19, 2020 12:00am cholecalciferol 0.25 mg oral capsule (2 sources) Vitamin D Start: 10-15-2023 take 1 capsule by mouth every week Cholecalciferol (Vitamin D3) 250 mcg (10,000 unit) capsule Active 250 ug PO EVERY WEEK October 15, 2023 12:00am Completed/Discontinued Medications Medication Drug Class(es) Dates Sig (Normalized) Sig (Original) polyethylene glycol 3350 601890 mg / potassium chloride 2970 mg / sodium bicarbonate 6740 mg / sodium chloride 5860 mg / sodium sulfate 75071 mg powder for oral solution (13 sources) Osmotic Laxative Start: 05-07-2019 End: 04-12-2020 take 4000 mL by mouth once Peg 3350-Electrolytes 236-22.74-6.74 -5.86 gram recon soln Discontinued 4000 mL PO ONCE 4000 0 May 07, 2019 1:00am April 12, 2020 11:04am until fecal effluent is clear; do not exceed a total volume of 4000 mL Start: 05-07-2019 End: 04-12-2020 take 4000 mL by mouth once Peg 3350-Electrolytes Disco ntinued 4000 ML PO ONCE 4000 May 07, 2019 12:00am April 12, 2020 10:04am until fecal effluent is clear; do not exceed a total volume of 4000 mL 100 ml zoledronic acid 0.05 mg/ml injection (15 sources) Bisphosphonate Start: 10-12-2022 End: 10-27-2024 Zoledronic Xwza-Ichcsqbt-Xxzka 5 mg/100 mL piggyback Discontinued 1 NMA .Route ONCE 100 0 November 13, 2022 2:11pm October 15, 2023 8:23am onceinfuse over 20 minutes Problems Active Problems Problem Classification Problem Date Documented Da te Episodic/Chronic Esophageal disorders (20 sources) Zenker's diverticulum; Translations: [Diverticulum of esophagus, acquired] Onset: 04-23-2023 Episodic Nutritional deficiencies (1 source) Vitamin D deficiency, unspecified; Translations: [Vitamin D deficiency, unspecified] Onset: 10-27-2024 Chronic Osteoporosis (6 sources) Age-related osteoporosis without current pathological fracture; Translations: [Osteoporosis, unspecified] Onset: 10-27-2024 10-12-2022 Chronic Other circulatory disease (2 sources) Elevated blood-pressure reading without diagnosis of hypertension; Translations: [Elevated blood-pressure reading, without diagnosis of hypertension] 03-15-2024 Episodic Other gastrointestinal disorders (13 sources) Dysphagia; Translations: [Dysphagia, unspecified] 11-19-2020 Episodic Other gastrointestinal disorders (7 sources) Oropharyngeal dysphagia; Translations: [Dysphagia, oropharyngeal phase] Onset: 04-23-2023 Episodic Other gastrointestinal disorders (4 sources) Dysphagia, oropharyngeal phase; Translations: [Dysphagia, oropharyngeal phase] Onset: 04-23-2023 Episodic Other gastrointestinal disorders (1 source) Diarrhea, unspecified; Translations: [Diarrhea, unspecified] Onset: 08-25-2024 Episodic Other nervous system disorders (2 sources) Paresthesia of foot ; Translations: [Paresthesia of skin] 10-27-2024 Episodic Other nervous system disorders (1 source) Paresthesia of skin; Translations: [Paresthesia of skin] Onset: 10-27-2024 Episodic Skin and subcutaneous tissue infections (2 sources) Impetigo; Translations: [Impetigo, unspecified] 03-15-2024 Episodic Spondylosis; intervertebral disc disorders; other back problems (1 source) Other intervertebral disc degeneration, lumbar region; Translations: [Degeneration of lumbar or lumbosacral intervertebral disc] 04-10-2022 Chronic Spondylosis; intervertebral disc disorders; other back problems (1 source) Radiculopathy, lumbar region; Translations: [Thoracic or lumbosacral neuritis or radiculitis, unspecified] 04-10-2022 Episodic Past or Other Problems Problem Classification Problem Date Documented Da te Episodic/Chronic Genitourinary symptoms and ill-defined conditions (1 source) Frequency of micturition; Translations: [Frequency of micturition] Onset: 03-20-2024 Episodic Other screening for suspected conditions (not mental disorders or infectious disease) (14 sources) Patient encounter status; Translations: [Encounter for screening for malignant neoplasm of intestinal tract, unspecified] Onset: 04-15-2024 05-07-2019 Episodic Results Test Name Value Interpretation Reference Range Facility Endocrinology Visit Reporton 10-27-2024 Endocrinology Visit Report [facility] [address] [place] [address] OFFICE VISIT Date of Service: 10/27/24 MR#: [id number] Acct: [id number] Name: JASVIRPHYLICIA L Rep #: [id number] : 1950 Provider: Martinez Hi Age/Sex: 74/F Location: [facility] [place] [facility] Status: Signed Intake Vital Signs 10/15/23 08:06 12/05/23 14:18 10/27/24 07:57 Height 5 ft 2 in 5 ft 2 in 5 ft 2 in Weight: 156 lb 2 oz BMI 28.5 BP 145/82 H Blood Pressure Location Lt brachial Position Sitting Pulse 63 Pulse Source Monitor Pulse Oximetry (%) 97 Oxygen Delivery Method room air Intake Visit Reasons: 1 Y FU Chief Complaint: Osteoporosis Is patient in pain?: No Allergies No Known Allergies Allergy (Verified 10/27/24 08:02) Medications ???Medication ???Instructions ???Recorded ???Confirmed ???Type acetaminophen 160 mg/5 mL (5 mL) 500 mg (15.625 mL) PO Q4H PRN PRN 11/19/20 10/27/24 Rx oral suspension Pain Score 1-5 #0 mL cholecalciferol (vitamin D3) 250 250 mcg PO QWEEK 10/15/23 10/27/24 History mcg (10,000 unit) capsule zoledronic acid 5 mg/100 mL in 1 ea .Route ONCE #100 mL 10/27/24 10/27/24 Rx mannitol 5 %-water intravenous piggybck Have you fallen in the past year?: No PFSH Medical History Osteoporosis Loss of hearing Wears glasses Alcohol use Difficulty swallowing Non-smoker Shortness of breath on exertion Screening for intestinal cancer Zenker's diverticulum Dysphagia Zenkers diverticulum Depression Surgical History S/P laparoscopic cholecystectomy Social History household members: spouse and other details: two grandchildren Smoking Status: Never smoker alcohol intake: current alcohol intake frequency: holidays/special occasions only do you feel safe at home: Yes HPI HPI Chief Complaint: Osteoporosis Details: PHYLICIA TAY, is a 74 F who presents to the office today for follow up. She has osteoporosis with t-score of -2.5 in the right femoral neck. She cannot take oral bisphosphonate. She received her first Reclast infusion on November 15, 2022. She tolerated it well. She would like to proceed with a full course. No recent falls or fractures. She reports paresthesias of both feet. ROS Const Constitutional: No fatigue, weight change or change in appetite Eyes Eyes: No change in vision ENT ENT: No dizziness/vertigo or difficulty swallowing Cardio Cardiology: No chest pain at rest, chest pain with exertion, shortness of breath or palpitations Musc Musculoskeletal: Positive for numbness and tingling; No abnormal gait or joint pain Neuro Neurology: Positive for numbness and tingling; No abnormal gait or memory loss Psych Psychiatric: No change in appetite, No memory loss and No Thoughts of harming yourself/Others Resp Respiratory: No cough, chest congestion or shortness of breath Gastro GI: No abdominal pain, constipation, diarrhea or difficulty swallowing Genitourinary-Female: No burning urination Skin Skin: No itchy eyes or wounds Endo Endocrine: No fatigue or weight change Aller/Imm Allergy/Immunologic: No itchy eyes Exam Const General: cooperative, healthy appearing, comfortable, no acute distress, well developed and not cushingoid Nutritional Appearance: well nourished Orientation: alert, awake and oriented x3 HENWA Head: normal to inspection Ears: hearing grossly normal bilaterally Nose: external nose normal Mouth: oral mucosae normal Eyes General: appearance normal, both eyes and all related structures Alignment and Position: alignment normal Periorbital: periorbital findings normal Eyelids: eyelids normal Conjunctivae: conjunctivae normal Neck Neck: normal visual inspection Neck mass: No Thyroid: thyroid normal Carotids: no bruits Lymphatic: no lymphadenopathy noted Chest Chest palpation inspection: normal inspection of the chest Resp Effort Inspection: normal respiratory effort, able to speak in complete sentences, symmetric chest movement, no audible wheezes and no cough Auscultation: Bilateral: Clear to Auscultation Cardio Rate: regular rate Rhythm: regular rhythm Pulses: posterior tibial pulses present Skin General: no rashes or lesions noted Neuro General: patient alert, patient awake and patient oriented x3 Cranial Nerves: CN's II-XI intact bilaterally Cognition: normal cognition Speech: speech normal Gait: normal gait Motor: muscle tone normal throughout Extrem General: no edema Psych Appearance: grossly normal Mental Status: mental status grossly normal Mood: congruent mood Affect: normal affect Speech and (more content not included)... Normal [facility] Ova and Parasites 8623on OP OVA AND PARASITES EXAM, ROUTINE These results were obtained using wet preparation(s) and trichrome stained smear. This test does not include testing for Crytosporidium parvum, Cyclospora, or Microsporidia. One negative specimen does not rule out the possibility of a parasitic infection. TESTING PERFORMED AT [facility] [place]. ORIGINAL REPORT ON FILE IN LAB CONTAINS ADDITIONAL TEST SITE INFORMATION. Ova/Parasite Exam NO OVA, CYSTS, OR PARASITES FOUND. Normal [facility] Comment on above: Performed By: #### M 100.6795, M100.6796, L3410.9992, M600.5000, M100.0605 #### [facility] [address] [place], [address] L3410.9992on 08-19-2024 [facility] COMMENT Normal . [facility] Comment on above: Order Comment: [id number] STOOL CUL Result Comment: Test Ordered: 862017 Stool Culture Salmonella/Shigella Screen Note: CB Final report Reference Range: . Result 1 Comment CB Reference Range: . No Salmonella or Shigella recovered. Campylobacter Culture Note: Final report Reference Range: . Result 1 Comment CB Reference Range: . No Campylobacter species isolated. E coli Shiga Toxin EIA Negative CB Reference Range: Negative Performed at: - [facility] [id number] Dopster: Jean Carlos Javier PhD, Phone: [phone] Performed By: #### M 100.6795, M100.6796, L3410.9992, M600.5000, M100.0605 #### [facility] [address] [place], [address] CDIFF (PCR)on 08-14-2024 CDIFF A positive C. difficile molecular test does not differentiate between an active C. difficile infection and C. difficile colonization. Use clinical judgement and paired toxin/antigen testing to identify true infection and need for treatment. C diff DNA Spec Ql ADIA+probe Reference Range: Negative [facility] GeneXpert: polymerase chain reaction (PCR) 027 027 NAP1-B1 Presumptive Negative *for epidemiolologic???use C. Diff PCR A Positive-Toxigenic C. Difficile Detected A Normal [facility] Comment on above: Performed By: #### M 100.6795, M100.6796, L3410.9992, M600.5000, M100.0605 #### [facility] [address] [place], [address] Clostridium Diff Toxin/Agon 08-14-2024 CDIFF (EIA) Interpretation of C. diff by EIA Method POS Antigen and POS Toxin = Positive for Toxigenic C. difficile gene and active toxin production IS detected. Consistent with true infection. C diff Stl Ql Copy of report sent to Infection Control Printer MS#[id number] 08/14/241651 MITCHELL. C diff Stl Ql C. difficile Antigen A Positive C. diff A/B Antigen A C. difficile Toxin A Positive-Toxigenic C. Difficile (EIA) A Toxigenic C. difficile * This is an amended result. * A prior result that was reported as final has been changed. 08/14/241653 by MITCHELL Normal [facility] Comment on above: Performed By: #### M 100.6795, M100.6796, L3410.9992, M600.5000, M100.0605 #### [facility] [address] [place], [place], [id number] Clostridium difficile detect ion by polymerase chain reactionOrdered By: Elizabeth Caban on 08-14-2024 C. difficile DNA ADIA+probe Ql (Unsp spec) [facility] Stool Clostridium difficile detectionOrdered By: Elizabeth Caban on 08-14-2024 C. difficile Ql (Stl) Toxigenic C. difficile Abnormal [facility] Stool Lactoferrin/WBCon 07-18 WBCST Normal Reference Ran ge = Negative Fecal WBC Lactoferrin A Positive: Fecal WBC Lactoferrin present A Normal [facility] Comment on above: Performed By: #### M 100.6795, M100.6796, L3410.9992, M600.5000, M100.0605 #### [facility] [address] [place], [address] Stool lactoferrin detection by immunoassayOrdered By: Elizabeth Caban on 08-14-2024 Lactoferrin IA Ql (Stl) [facility] SCRN MAMM (CAD)W/KOURTNEY BILATo n 03-25-2024 SCRN MAMM (CAD)W/KOURTNEY BILAT [facility] Imaging Services [address] [place] [address] SCRN MAMM (CAD)W/KOURTNEY BILAT MR#: [id number] Acct: [id number] Name: PHYLICIA TAY Rep #: [id number] : 1950 F 74 From: Abhi preston MD PCP: Dr. Domingo Aguiar DO Status: [facility] Study: SCRN MAMM (CAD)W/KOURTNEY BILAT Date of Exam: 10/10 Exam# [id number] Ordering Dr: Domingo Aguiar DO [id number] MAMMOGRAPHY - BILATERAL SCREENING REASON FOR EXAM: Female, 74 years old. Routine annual screening examination. PERTINENT HISTORY: Non-contributory. TECHNIQUE: Digital bilateral breast kourtney (3D mammographic acquisition) in the CC and MLO projections. 2-D mediolateral oblique (MLO) and craniocaudad (CC) views of both breasts were obtained. CAD: Full Field Digital Mammography with Computer Added Detection was performed. COMPARISON: Comparison is made with prior study January 10, 2022 and September 26, 2018. FINDINGS: Breast Composition: There are scattered areas of fibroglandular density. There are no dominant masses or suspicious calcifications. No other significant abnormalities are identified. There has been no significant change since the prior study. BI/SCRN MAMM (CAD)W/KOURTNEY BILAT IMPRESSION: Stable bilateral screening mammogram. Yearly follow-up mammogram recommended. (A) ASSESSMENT CATEGORY: BIRADS Category 1: Negative. A letter regarding these results will be sent to the patient by the facility within 30 days. Approximately 10% of breast cancers are not detected by mammography. A normal mammogram should not delay biopsy of a clinically suspicious abnormality. [id number] Electronically Signed: Abhi Argueta MD at 8:23 EST , CC: Dr. Domingo Aguiar, Immigration Lawyer: Signed Normal [facility] Urgent Care Visit Reporton 1 05-16-2023 Urgent Care Visit Report [facility] [address], [address] [place] [address] OFFICE VISIT Date of Service: 03/15/24 MR#: [id number] Acct: [id number] Name: PHYLICIA TAY Rep #: [id number] : 1950 Provider: NITZA Kelly Age/Sex: 74/F Location: [facility] Status: Signed with Addenda ADDENDUM by NITZA Kelly on 03/15/24 at 1121 HPI Details: PHYLICIA TAY, is a 74 F who presents to the office today for Assessment and Plan Assessment and Plan (1) Impetigo: Status: Acute (2) Elevated BP without diagnosis of hypertension: Status: Acute Plan: -dash diet, exercise, maintain healthy weight -to follow up with pcp in 1-2 wks for BP check 03/15/24 1121 Date Jacqui Kelly cc: * Signed Intake Vital Signs 12/05/23 14:18 03/15/24 10:52 Height 5 ft 2 in BP 162/72 H Blood Pressure Location Lt brachial Position Sitting Respiration 15 Pulse 92 Pulse Source NIBP Temp 98.5 F Temp Source Oral Pulse Oximetry (%) 99 Oxygen Delivery Method room air Intake Visit Reasons: RED R EYE Chief Complaint: rash to left face 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 Is patient in pain?: No Allergies No Known Allergies Allergy (Verified 03/15/24 10:56) Medications ???Medication ???Instructions ???Recorded ???Confirmed ???Type acetaminophen 160 mg/5 mL (5 mL) 500 mg (15.625 mL) PO Q4H PRN PRN 11/19/20 03/15/24 Rx oral suspension Pain Score 1-5 #0 mL cholecalciferol (vitamin D3) 250 250 mcg PO QWEEK 10/15/23 03/15/24 History mcg (10,000 unit) capsule zoledronic acid 5 mg/100 mL in 1 ea .Route ONCE #100 mL 10/15/23 03/15/24 Rx mannitol 5 %-water intravenous piggybck Is last menstrual period known: No Post menopausal: Yes Patient : No Have you fallen in the past year?: No Nurse's Note: rash to left face extending very close to left lacrimal duct with itching and swelling since last noc. concern for impetigo vs shingles PFSH Medical History Osteoporosis Loss of hearing Wears glasses Alcohol use Difficulty swallowing Non-smoker Shortness of breath on exertion Screening for intestinal cancer Zenker's diverticulum Dysphagia Zenkers diverticulum Depression Surgical History S/P laparoscopic cholecystectomy Social History household members: spouse and other details: two grandchildren Smoking Status: Never smoker alcohol intake: current alcohol intake frequency: holidays/special occasions only do you feel safe at home: Yes HPI HPI Chief Complaint: rash to left face Details: PHYLICIA TAY, is a 74 F who presents to the office today for rash -bp elevated without dx htn- denies cp, palpitations or sob -sx started yesterday -left eye- went to [facility] yesterday and before she left below eye was itching, this morning below left eye swollen- eye not swollen -denies any drainage, loss or change of vision -on occasion will get a very sharp pain that comes and goes quickly -no fever or chills -no injury to eye or face -tried so far nothing -left side of nare 2-3 wks ago had 1 spot of impetigo and was given bactroban ointment- used and resolved sx -no recent uri -no shingles vax, did have chicken box as child -she is a substitute librarian school ROS Const Constitutional: Positive for other (ROS negative x6 except what was placed in HPI) Exam Const General: cooperative and no acute distress Orientation: alert and oriented x3 Eyes Eyelids: eyelids normal Conjunctivae: conjunctivae normal Sclera: sclerae normal Cornea: corneas normal Pupils: PERRL and normal by confrontation EOM: EOM intact bilaterally Other: -below left eye + small fragile, thin roofed clear to cloudy blisters- some crusted over with yellow discharge medial to nose then lateral to that with bullous about 1 cm in width by 0.2cm in length- intact- appears to have clear fluid, flaccid and transparent ??? Resp Effort Inspection: normal respiratory effort, able to speak in complete sentences and symmetric chest movement Auscultation: Bilateral: Clear to Auscultation, Left: Clear to Auscultation and Right: Clear to Auscultation Cardio Rate: regular rate Rhythm: regular rhythm Heart Sounds: S1 normal and S2 normal GI Auscultation: normal bowel sounds Palpation: soft and no hepatosplenomegaly Neuro General: patient alert, patient awake and patient oriented x3 Extrem General: normal to inspection and full ROM Psych Appearance: grossly normal Mental Status: mental status grossly normal Attitude: cooperative Thought Process: normal Thought Content: normal (more content not included)... Normal [facility] Urine Cultureon 02-19-2024 [facility] Mixed Gram Pos Gram Neg Org [place] Count 50,000-80,000 MIXC Mixed contaminants. Submit a new specimen if indicated. Normal [facility] Comment on above: Performed By: #### M 100.1130 #### [facility] [address] [place], [place], [id number] Absolute lymphocyte countOrd ered By: Domingo Aguiar on 11-22-2022 Lymphocytes Auto (Unsp spec) [#/Vol] 1.34 10*3/uL 0.83-4.51 [facility] Basophil percentageOrdered B y: Domingo Aguiar on 11-22-2022 Basophils/100 WBC (Bld) 0.9 % 0-1 [facility] Bilirubin [Mass/Vol] 1.10 mg/dL 0.20-1.00 [facility] Comment on above: For patients on eltr ombopag therapy, use of Dimension [place] TBIL is not recommended. Chloride [Moles/Vol] 112 mmol/L 98-107 [facility] Cholesterol [Mass/Vol] 203 mg/dL <200 [facility] Comment on above: <200 mg/dL Desirable 200-240 mg/dL Borderline >240 mg/dL High Risk Eosinophils/100 WBC (Bld) 6.0 % 0-5 [facility] Glucose [Mass/Vol] 89 mg/dL 74-106 [facility] Neutrophils (Bld) [#/Vol] 3.2 10*3/uL 2.0-7.7 [facility] Neutrophils/100 WBC (Bld) 59.7 % 47-70 [facility] Potassium [Moles/Vol] 4.2 mmol/L 3.5-5.1 [facility] Protein [Mass/Vol] 6.7 g/dL 6.4-8.2 [facility] Sodium [Moles/Vol] 143 mmol/L 136-145 [facility] Triglyceride [Mass/Vol] 176 mg/dL <199 [facility] Comment on above: The drugs N-Acetylcy steine and Metamizole may falsely depress this assay.Serum Triglycerides Reference Interval Normal <150 mg/dL Borderline high 150 - 199 mg/dL High 200 - 499 mg/dL Very High > or = 500 mg/dL WBC (Bld) [#/Vol] 5.3 10*3/uL 4.4-11.0 [facility] Blood erythrocytes count (nu mber/volume)Ordered By: Domingo Aguiar on 11-22-2022 RBC (Bld) [#/Vol] 4.08 10*6/uL 4.2-5.4 [facility] Blood hemoglobin measurement (mass/volume)Ordered By: Domingo Aguiar on 11-22-2022 Hemoglobin (Bld) [Mass/Vol] 12.7 g/dL 12.0-15.0 [facility] Blood lymphocytes/100 leukoc ytesOrdered By: Domingo Aguiar on 11-22-2022 Lymphocytes/100 WBC (Bld) 25.1 % 19-41 [facility] Blood monocytes/100 leukocyt esOrdered By: Domingo Aguiar on 11-22-2022 Monocytes/100 WBC (Bld) 8.1 % 0-10 [facility] Blood platelet mean volumeOr dered By: Domingo Aguiar on 11-22-2022 Platelet mean volume (Bld) [Entitic vol] 9.8 fL 6.2-12.0 [facility] Determination of erythrocyte mean corpuscular volume (MCV)Ordered By: Domingo Aguiar on 11-22-2022 MCV (RBC) [Entitic vol] 95.8 fL 81-99 [facility] Hematocrit Auto (Bld) [Volum e fraction]Ordered By: Domingo Aguiar on 11-22-2022 Hematocrit (Bld) [Volume fraction] 39.1 % 37-47 [facility] - Chemistry and C hemistry - challengeOrdered By: Domingo Aguiar on 11-22-2022 ALP [Catalytic activity/Vol] 102 U/L 45-117 [facility] ALT [Catalytic activity/Vol] 27 U/L 13-56 [facility] CO2 [Moles/Vol] 27.0 mmol/L 21.0-32.0 [facility] Cobalamin (Vitamin B12) [Mass/Vol] 337 pg/mL 211-911 [facility] Globulin (S) [Mass/Vol] 3.7 g/dL 2.2-4.2 [facility] Urea nitrogen/Creatinine [Mass ratio] 17.0 mg/mg 10-20 [facility] Laboratory - Hematology and Cell countsOrdered By: Domingo Aguiar on 11-22-2022 Erythrocyte distribution width (RBC) [Entitic vol] 46.4 fL 35.1-43.9 [facility] Erythrocyte distribution width (RBC) [Ratio] 13.1 % 11.6-14.6 [facility] Immature granulocytes/100 WBC (Bld) 0.200 % 0.0-0.9 [facility] Comment on above: IG% - Immature Granu locytes (promyelocytes, myelocytes and metamyelocytes) > 1% indicates that a LEFT SHIFT is Present. MCH (RBC) [Entitic mass] 31.1 pg 27.0-32.0 [facility] Nucleated RBC/100 WBC (Bld) [Ratio] 0 % 0-5 [facility] MCHC Auto (RBC) [Mass/Vol]Or dered By: Domingo Aguiar on 11-22-2022 MCHC (RBC) [Mass/Vol] 32.5 g/dL 32-36 [facility] No Panel InformationOrdered By: Domingo Aguiar on 11-22-2022 Estimated GFR (MDRD) Amer 81 mL/min >60 [facility] Comment on above: GFR Calc Estimated GFR (MDRD) Non-Af Amer 67 mL/min >60 [facility] Comment on above: Non- GFR Calc Thyroid Stimulating Hormone (TSH) 2.04 uIU/mL 0.358-3.74 [facility] Vitamin D 25-Hydroxy 25.1 ng/mL [facility] Comment on above: Vitamin D 25(OH) Sta tus Range Deficiency <20 ng/mL (50nmol/L) Insufficiency 20 - 30 ng/mL (50 - 75 nmol/L) Sufficiency 30 - 100 ng/mL (75 - 250 nmol/L) Toxicity >100 ng/mL (>250 nmol/L) Platelets bldOrdered By: Ruth Aguiar on 11-22-2022 Platelets (Bld) [#/Vol] 353 10*3/uL 150-450 [facility] Serum or plasma albumin steff urement (mass/volume)Ordered By: Domingo Aguiar on 11-22-2022 Albumin [Mass/Vol] 3.0 g/dL 3.2-5.0 [facility] Serum or plasma albumin/glob ulin mass ratioOrdered By: Domingo Aguiar on 11-22-2022 Albumin/Globulin [Mass ratio] 0.8 {ratio} 0.9-2.4 [facility] Serum or plasma calcium steff urement (mass/volume)Ordered By: Domingo Aguiar on 11-22-2022 Calcium [Mass/Vol] 8.5 mg/dL 8.5-10.1 [facility] Serum or plasma cholesterol in HDL measurement (mass/volume)Ordered By: Domingo Aguiar on 11-22-2022 Cholesterol in HDL [Mass/Vol] 74 mg/dL >40 [facility] Comment on above: The drugs N-Acetylcy steine and Metamizole may falsely depress this assay. Reference Range HDL <40 mg/dL Low HDL Cholesterol HDL >or= 60 mg/dL High HDL Cholesterol Serum or plasma cholesterol in VLDL measurement (mass/volume)Ordered By: Domingo Aguiar on 11-22-2022 Cholesterol in VLDL [Mass/Vol] 35 mg/dL 5-40 [facility] Serum or plasma creatinine m easurement (mass/volume)Ordered By: Domingo Aguiar on 11-22-2022 Creatinine [Mass/Vol] 0.88 mg/dL 0.55-1.02 [facility] Comment on above: The validity of the calculated GFR & GFRAA in patients over 70 years has not been determined. Clinical correlation is essential. Serum or plasma low density lipoprotein (LDL) cholesterol measurement (mass/volume)Ordered By: Domingo Aguiar on 11-22-2022 Cholesterol in LDL [Mass/Vol] 94 mg/dL 0-130 [facility] Serum or plasma urea nitroge n measurement (mass/volume)Ordered By: Domingo Aguiar on 11-22-2022 Urea nitrogen [Mass/Vol] 15 mg/dL 7-18 [facility] Thin prep Papanicolaou smear with manual screeningOrdered By: Domingo Aguiar on 11-22-2022 Thin prep Papanicolaou smear with manual screening 18 U/L 15-37 [facility] Thin prep Papanicolaou smear with manual screening 4 5-15 [facility] Absolute lymphocyte counton 11-10-2021 Lymphocytes Auto (Unsp spec) [#/Vol] 1.44 10*3/uL 0.83-4.51 [facility] Work Phone: Basophil percentageon 2021 Basophils/100 WBC (Bld) 1.7 % 0-1 [facility] Work Phone: Bilirubin [Mass/Vol] 0.90 mg/dL 0.20-1.00 [facility] Work Phone: Comment on above: For patients on eltr ombopag therapy, use of Dimension [place] TBIL is not recommended. Chloride [Moles/Vol] 108 mmol/L 98-107 [facility] Work Phone: [phone] Cholesterol [Mass/Vol] 197 mg/dL <200 [facility] Work Phone: Comment on above: <200 mg/dL Desirable 200-240 mg/dL Borderline >240 mg/dL High Risk Eosinophils/100 WBC (Bld) 5.8 % 0-5 [facility] Work Phone: Glucose [Mass/Vol] 89 mg/dL 74-106 [facility] Work Phone: [phone] Neutrophils (Bld) [#/Vol] 2.5 10*3/uL 2.0-7.7 [facility] Work Phone: [phone] Neutrophils/100 WBC (Bld) 53.3 % 47-70 [facility] Work Phone: [phone] Potassium [Moles/Vol] 4.3 mmol/L 3.5-5.1 [facility] Work Phone: [phone] Protein [Mass/Vol] 6.9 g/dL 6.4-8.2 [facility] Work Phone: [phone] Sodium [Moles/Vol] 141 mmol/L 136-145 [facility] Work Phone: Triglyceride [Mass/Vol] 130 mg/dL <199 [facility] Work Phone: [phone] Comment on above: The drugs N-Acetylcy steine and Metamizole may falsely depress this assay.Serum Triglycerides Reference Interval Normal <150 mg/dL Borderline high 150 - 199 mg/dL High 200 - 499 mg/dL Very High > or = 500 mg/dL WBC (Bld) [#/Vol] 4.7 10*3/uL 4.4-11.0 [facility] Work Phone: Blood erythrocytes count (nu mber/volume)on 11-10-2021 RBC (Bld) [#/Vol] 4.16 10*6/uL 4.2-5.4 [facility] Work Phone: Blood hemoglobin measurement (mass/volume)on 11-10-2021 Hemoglobin (Bld) [Mass/Vol] 12.8 g/dL 12.0-15.0 [facility] Work Phone: Blood lymphocytes/100 leukoc yteson 11-10-2021 Lymphocytes/100 WBC (Bld) 30.7 % 19-41 [facility] Work Phone: Blood monocytes/100 leukocyt eson 11-10-2021 Monocytes/100 WBC (Bld) 8.3 % 0-10 [facility] Work Phone: Blood platelet mean volumeon 11-10-2021 Platelet mean volume (Bld) [Entitic vol] 10.1 fL 6.2-12.0 [facility] Work Phone: Determination of erythrocyte mean corpuscular volume (MCV)on 11-10-2021 MCV (RBC) [Entitic vol] 95.2 fL 81-99 [facility] Work Phone: Hematocrit Auto (Bld) [Volum e fraction]on 11-10-2021 Hematocrit (Bld) [Volume fraction] 39.6 % 37-47 [facility] Work Phone: Laboratory - Chemistry and C hemistry - challengeon 11-10-2021 ALP [Catalytic activity/Vol] 72 U/L 45-117 [facility] Work Phone: ALT [Catalytic activity/Vol] 24 U/L 13-56 [facility] Work Phone: CO2 [Moles/Vol] 29.0 mmol/L 21.0-32.0 [facility] Work Phone: Globulin (S) [Mass/Vol] 3.7 g/dL 2.2-4.2 [facility] Work Phone: Urea nitrogen/Creatinine [Mass ratio] 13.5 mg/mg 10-20 [facility] Work Phone: Laboratory - Hematology and Cell countson 11-10-2021 Erythrocyte distribution width (RBC) [Entitic vol] 46.0 fL 35.1-43.9 [facility] Work Phone: Erythrocyte distribution width (RBC) [Ratio] 13.1 % 11.6-14.6 [facility] Work Phone: Immature granulocytes/100 WBC (Bld) 0.200 % 0.0-0.9 [facility] Work Phone: Comment on above: IG% - Immature Granu locytes (promyelocytes, myelocytes and metamyelocytes) > 1% indicates that a LEFT SHIFT is Present. MCH (RBC) [Entitic mass] 30.8 pg 27.0-32.0 [facility] Work Phone: Nucleated RBC/100 WBC (Bld) [Ratio] 0 % 0-5 [facility] Work Phone: MCHC Auto (RBC) [Mass/Vol]on 11-10-2021 MCHC (RBC) [Mass/Vol] 32.3 g/dL 32-36 [facility] Work Phone: No Panel Informationon 11-10 Estimated GFR (MDRD) Amer 81 mL/min >60 [facility] Work Phone: Comment on above: GFR Calc Estimated GFR (MDRD) Non-Af Amer 67 mL/min >60 [facility] Work Phone: Comment on above: Non- GFR Calc Thyroid Stimulating Hormone (TSH) 1.71 uIU/mL 0.358-3.74 [facility] Work Phone: Vitamin D 25-Hydroxy 30.5 ng/mL [facility] Work Phone: Comment on above: Vitamin D 25(OH) Sta tus Range Deficiency <20 ng/mL (50nmol/L) Insufficiency 20 - 30 ng/mL (50 - 75 nmol/L) Sufficiency 30 - 100 ng/mL (75 - 250 nmol/L) Toxicity >100 ng/mL (>250 nmol/L) Platelets bldon 08-25-2022 Platelets (Bld) [#/Vol] 347 10*3/uL 150-450 [facility] Work Phone: Serum or plasma albumin steff urement (mass/volume)on 11-10-2021 Albumin [Mass/Vol] 3.2 g/dL 3.2-5.0 [facility] Work Phone: Serum or plasma albumin/glob ulin mass ratioon 11-10-2021 Albumin/Globulin [Mass ratio] 0.9 {ratio} 0.9-2.4 [facility] Work Phone: Serum or plasma calcium steff urement (mass/volume)on 11-10-2021 Calcium [Mass/Vol] 9.3 mg/dL 8.5-10.1 [facility] Work Phone: Serum or plasma cholesterol in HDL measurement (mass/volume)on 11-10-2021 Cholesterol in HDL [Mass/Vol] 78 mg/dL >40 [facility] Work Phone: Comment on above: The drugs N-Acetylcy steine and Metamizole may falsely depress this assay. Reference Range HDL <40 mg/dL Low HDL Cholesterol HDL >or= 60 mg/dL High HDL Cholesterol Serum or plasma cholesterol in VLDL measurement (mass/volume)on 11-10-2021 Cholesterol in VLDL [Mass/Vol] 26 mg/dL 5-40 [facility] Work Phone: Serum or plasma creatinine m easurement (mass/volume)on 11-10-2021 Creatinine [Mass/Vol] 0.89 mg/dL 0.55-1.02 [facility] Work Phone: Comment on above: The validity of the calculated GFR & GFRAA in patients over 70 years has not been determined. Clinical correlation is essential. Serum or plasma low density lipoprotein (LDL) cholesterol measurement (mass/volume)on 11-10-2021 Cholesterol in LDL [Mass/Vol] 93 mg/dL 0-130 [facility] Work Phone: Serum or plasma urea nitroge n measurement (mass/volume)on 11-10-2021 Urea nitrogen [Mass/Vol] 12 mg/dL 7-18 [facility] Work Phone: Thin prep Papanicolaou smear with manual screeningon 11-10-2021 Thin prep Papanicolaou smear with manual screening 13 U/L 15-37 [facility] Work Phone: Thin prep Papanicolaou smear with manual screening 4 5-15 [facility] Work Phone: Vital Signs Date Time Vital Sign Value Performing Clinician Facility 10-27-2024 07:57-0400 Body height 157.[address] Domingo Aguiar DO Work Phone: [facility] 10-27-2024 07:57-0400 Body mass index (BMI) [Ratio] 28.5 kg/m2 Dr. Domingo Aguiar DO Work Phone: [facility] 10-27-2024 07:57-0400 Body weight 70.[address] Domingo Aguiar DO Work Phone: [facility] 10-27-2024 07:57-0400 Diastolic blood pressure 82 mm[Hg] Dr. Domingo Aguiar DO Work Phone: [facility] 10-27-2024 07:57-0400 Heart rate 63 /min Dr. Domingo Aguiar DO Work Phone: [facility] 10-27-2024 07:57-0400 SaO2% (BldA) [Mass fraction] 97 % Dr. Domingo Aguiar DO Work Phone: [facility] 10-27-2024 07:57-0400 Systolic blood pressure 145 mm[Hg] Dr. Domingo Aguiar DO Work Phone: [facility] 04-23-2023 10:27-0500 Body height 157.5 cm Benny Naranjo MD Work Phone: [facility] 04-23-2023 10:27-0500 Body mass index (BMI) [Ratio] 28.5 kg/m2 Benny Naranjo MD Work Phone: [facility] 04-23-2023 10:27-0500 Body temperature 98.1 [degF] Benny Naranjo MD Work Phone: [facility] 04-23-2023 10:27-0500 Body weight 70.67 kg Benny Naranjo MD Work Phone: [facility] 11-15-2022 09:26-0400 Body temperature 96.1 [degF] Dr. Domingo Aguiar Work Phone: [facility] 11-15-2022 09:26-0400 Diastolic blood pressure 72 mm[Hg] Dr. Domingo Aguiar Work Phone: [facility] 11-15-2022 09:26-0400 Heart rate 65 /min Dr. Domingo Aguiar Work Phone: [facility] 11-15-2022 09:26-0400 Respiratory rate 16 /min Dr. Domingo Aguiar Work Phone: [facility] 11-15-2022 09:26-0400 SaO2% (BldA) [Mass fraction] 96 % Dr. Domingo Aguiar Work Phone: [facility] 11-15-2022 09:26-0400 Systolic blood pressure 117 mm[Hg] Dr. Domingo Aguiar Work Phone: [facility] 11-15-2022 08:35-0400 Body height 157.[address] Domingo Aguiar Work Phone: [facility] 10-12-2022 10:51-0400 Body mass index (BMI) [Ratio] 28.2 kg/m2 Dr. Domingo Aguiar Work Phone: [facility] 10-12-2022 10:51-0400 Body temperature 98.3 [degF] Dr. Domingo Aguiar Work Phone: [facility] 10-12-2022 10:51-0400 Body weight 69.[address] Domingo Aguiar Work Phone: [facility] 10-12-2022 10:51-0400 Diastolic blood pressure 82 mm[Hg] Dr. Domingo Aguiar Work Phone: [facility] 10-12-2022 10:51-0400 Heart rate 78 /min Dr. Domingo Aguiar Work Phone: [facility] 10-12-2022 10:51-0400 Respiratory rate 16 /min Dr. Domingo Aguiar Work Phone: [facility] 10-12-2022 10:51-0400 SaO2% (BldA) [Mass fraction] 96 % Dr. Domingo Aguiar Work Phone: [facility] 10-12-2022 10:51-0400 Systolic blood pressure 150 mm[Hg] Dr. Domingo Aguiar Work Phone: [facility] 03-21-2022 09:11-0500 Body weight 69.94 kg Benny Naranjo MD Work Phone: [facility] 03-21-2022 09:11-0500 Diastolic blood pressure 86 mm[Hg] Benny Naranjo MD Work Phone: [facility] 03-21-2022 09:11-0500 Heart rate 74 /min Benny Naranjo MD Work Phone: [facility] 03-21-2022 09:11-0500 Respiratory rate 18 /min Benny Naranjo MD Work Phone: [facility] 03-21-2022 09:11-0500 SaO2% (BldA) [Mass fraction] 97 % Benny Naranjo MD Work Phone: [facility] 03-21-2022 09:11-0500 Systolic blood pressure 133 mm[Hg] Benny Naranjo MD Work Phone: [facility] 01-10-2022 12:05-0400 Body height 157.[address] Domingo Aguiar Work Phone: [facility] Encounters Encounter Date Encounter Type Care Provider Facility Start: 10-27-2024 End: 10-27-[address] Derrick Montanez MD -[facility] Work Phone: Start: 10-27-2024 End: 10-27-[address] Domingo Aguiar DO Work Phone: -[facility] Start: 08-14-2024 End: 08-14-[address] Domingo Aguiar DO Work Phone: [facility] Work Phone: Start: 08-14-2024 End: 08-14-2024 Patient encounter procedure Elizabeth Caban ECONOMIC DEVELOPMENT DIRECTOR-C -Laboratory Specimen Work Phone: Start: 08-14-2024 End: 08-14-2024 ambulatory Elizabeth Caban Facility:[facility] Start: 03-25-2024 End: 03-25-2024 ambulatory Domingo Cosme Facility:[facility] Start: 03-15-2024 End: 03-15-2024 ambulatory [facility] Facility:[facility] Start: 02-18-2024 End: 02-18-2024 ambulatory [facility] Facility:[facility] Start: 12-05-2023 End: 12-05-2023 ambulatory Derrick Montanez Facility:[facility] Start: 05-14-2023 End: 05-14-2023 ambulatory [facility] Work Phone: Start: 05-14-2023 End: 05-14-2023 Patient encounter procedure [facility]-Radiology, H Work Phone: Start: 04-27-2023 End: 04-28-2023 ambulatory PROVIDER NOT IN SYSTEM [facility] Start: 04-25-2023 ambulatory BENNYDEEPA NARANJO [facility] Start: 04-23-2023 End: 04-23-2023 ambulatory BENNYDEEPA WILKINSON NARANJO [facility] Start: 04-23-2023 End: 04-23-2023 Office outpatient visit 25 minutes Benny Naranjo MD Work Phone: [facility] Comment on above: Zenker diverticulum (Primary Dx); Oropharyngeal dysphagia Start: 04-11-2023 End: 04-11-2023 ambulatory [facility] Work Phone: Start: 04-11-2023 End: 04-11-2023 Patient encounter procedure [facility]-Radiology, [facility] Work Phone: Start: 11-22-2022 End: 11-22-[address] Domingo Aguiar Work Phone: [facility] Work Phone: Start: 11-22-2022 End: 11-22-[address] Domingo Aguiar Work Phone: [facility], [facility] Start: 11-15-2022 End: 11-15-[address] Domingo Aguiar Work Phone: [facility] Work Phone: Start: 11-15-2022 End: 11-15-[address] Domingo Aguiar Work Phone: [facility]-Medical Out Work Phone: Start: 10-12-2022 End: 10-12-[address] Domingo Aguiar Work Phone: [facility] Work Phone: Start: 05-26-2022 End: 05-26-[address] Domingo Aguiar Work Phone: [facility] Work Phone: Start: 05-26-2022 End: 05-26-[address] Domingo Aguiar Work Phone: [facility]-Physical Therapy Start: 04-10-2022 End: 04-10-[address] Domingo Aguiar Work Phone: [facility] Start: 04-04-2022 End: 04-04-[address] Domingo Aguiar Work Phone: [facility] Work Phone: Start: 04-04-2022 End: 04-04-[address] Domingo Aguiar Work Phone: [facility]-Speech Therapy Start: 03-28-2022 End: 03-28-[address] Domingo Aguiar Work Phone: [facility] Work Phone: Start: 03-28-2022 End: 03-28-[address] Domingo Aguiar Work Phone: [facility] Start: 03-21-2022 End: 03-21-2022 Office outpatient visit 15 minutes Benny Naranjo MD Work Phone: [facility] Comment on above: Oropharyngeal dyspha chel (Primary Dx); Zenker diverticulum Start: 03-16-2022 Transcribe Orders Ni Reddy MA [facility] Comment on above: Zenker diverticulum (Primary Dx) Start: 03-03-2022 End: 03-03-[address] Domingo Aguiar Work Phone: [facility] Work Phone: Start: 03-03-2022 End: 03-03-[address] Domingo Augiar Work Phone: [facility]-Radiology, [facility] Start: 01-10-2022 End: 01-10-[address] Domingo Aguiar Work Phone: [facility] Work Phone: Start: 01-10-2022 End: 01-10-[address] Domingo Aguiar Work Phone: [facility]-Outpatient Bone Densitometry Start: 12-26-2021 Non-patient / Non-visit Dr. Ayanna Aguiar Work Phone: [facility] Start: 12-26-2021 End: 12-26-[address] Domingo Aguiar Work Phone: [facility] Work Phone: Start: 12-26-2021 End: 12-26-[address] Domingo Aguiar Work Phone: [facility]-Cardiovascular Services Start: 11-10-2021 End: 11-10-2021 ambulatory [facility] Work Phone: Start: 11-10-2021 End: 11-10-2021 Patient encounter procedure [facility]-Laboratory, [place] Procedures Date Procedure Procedure Detail Performing Clinician Start: 08-14-20[address] e detection Dr[address] Domingo Aguiar DO Work Phone: Start: 08-14-2024 Gram stain microscopy Isaiah Aguiar DO Work Phone: Start: 08-14-[address] Domingo Aguiar DO Work Phone: Start: 08-14-[address] Martinez Aguiar DO Work Phone: Start: 08-14-[address] Domingo Aguiar DO Work Phone: Start: 08-14-2024 Ova&parasites direct smears concentration & id Dr. Domingo Aguiar DO Work Phone: Start: 08-14-[address] Domingo chawla DO Work Phone: Comment on above: Test Ordered: [id number] Stool CultureSalmonella/Shigella Screen Note: CB Final report Reference Range: .Result 1 Comment CB Reference Range: .No Salmonella or Shigella recovered.Campylobacter Culture Note: CB Final report Reference Range: .Result 1 Comment CB Reference Range: .No Campylobacter species isolated.E coli Shiga Toxin EIA Negative CB Reference Range: NegativePerformed at: [place] [id number] Director: Jean Carlos Javier PhD, Phone: [phone] Start: 05-14-2023 Radiography of esophagus Start: 04-11-2023 [place] Start: 04-10-2022 X-ray of lumbar spin e, two or three views Dr. Domingo Aguiar Work Phone: Start: 03-28-2022 Plain x-ray of pelvi s and lower extremity Dr. Domingo Aguiar Work Phone: Start: 03-03-[address] Domingo chawla Work Phone: Start: 01-10-2022 Dual energy X-ray absorptiometry Dr. Domingo Aguiar Work Phone: Start: 01-10-2022 Screening mammography Isaiah Aguiar Work Phone: Plan of Treatment Date Care Activity Detail Author Start: 08-14-2024 Ova and Parasites Ova and Parasites [facility] Start: 08-14-2024 Procedure [facility] Start: 06-26-2023 End: 06-26-2023 Follow-up encounter 06/26/2023 8:45 AM EDT Follow-Up [facility] [address] [place] [id number] Benny Naranjo MD [address] [address] [facility] Start: 06-13-2023 End: 06-13-2023 Admission to same day surgery center 06/13/2023 7:30 AM EDT - 06/13/2023 8:32 AM EDT Surgery [facility] Periop [address] [place] [id number] Benny Naranjo MD [address] [address] [facility] Comment on above: [facility] Start: 06-13-2023 End: 06-13-2023 [facility] Zenker diverticulum Oropharyngeal dysphagia 06/13/2023 7:30 AM EDT [facility] Start: 06-13-2023 Subsequent hospital visit by physician 06/13/2023 7:30 AM EDT Hospital Encounter [facility] Periop [address] [place] [address] Benny Naranjo MD [address] [address] [facility]iop Start: 06-12-2023 End: 06-12-2023 Follow-up encounter 06/12/2023 8:45 AM EDT Follow-Up [facility] [address] [place] [address] Benny Naranjo MD [address] [address] [facility] Start: 06-04-2023 End: 06-04-2023 Patient encounter procedure 06/04/2023 1:00 PM EDT Office Visit [facility] Preadmission Testing [address] [place] [address] [facility] Preadmission Testing Start: 05-30-2023 End: 05-30-2023 Admission to same day surgery center 05/30/2023 7:30 AM EDT - 05/30/2023 8:32 AM EDT Surgery [facility] Periop [address] [place] [address] Benny Naranjo MD [address] [address] [facility] Comment on above: [facility] Start: 05-30-2023 End: 05-30-2023 [facility] Zenker diverticulum Oropharyngeal dysphagia 05/30/2023 7:30 AM EDT [facility] Start: 05-30-2023 Subsequent hospital visit by physician 05/30/2023 7:30 AM EDT Hospital Encounter [facility] Periop [address] [place] [address] Benny Naranjo MD [address] [facility] [address] [place] [address] [facility] Start: 11-17-2022 Influenza vaccination Sequential Influenza Vaccine (#1) [facility] Start: 11-15-2022 Iv infusion therapy/prophylaxis /dx 1st to 1 hr THER/PROPH/DIAG IV INF INIT [facility] Start: 04-10-2022 Patient referral [facility] Work Phone: Start: 03-21-2022 End: 03-21-2022 Patient encounter procedure 03/21/2022 Office Visit Otolaryngology Benny Naranjo MD [address] [facility] [address] [place] [address] [facility] [place] Start: 11-17-2021 Influenza vaccination Sequential Influenza Vaccine (#1) [facility] Start: 04-09-2016 Pneumococcal Vaccine: Age 65+ (2 - PCV) Pneumococcal Vaccine: Age 65+ (2 - PCV) [facility] Start: 04-09-2016 Pneumococcal Vaccine: Age 65+ (2 of 2 - PCV) Pneumococcal Vaccine: Age 65+ (2 of 2 - PCV) [facility] Start: 2015 Fall risk assessment Falls Risk Assessment [facility] Start: 2015 Pneumococcal Vaccine: Age 65+ (1 - PCV) Pneumococcal Vaccine: Age 65+ (1 - PCV) [facility] Start: 2000 Administration of herpes zoster vaccine Zoster Vaccines (1 of 2) [facility] Start: 2000 Screening for malignant neoplasm of colon Flexible sigmoidoscopy [facility] Start: 1990 Screening for malignant neoplasm of breast Mammogram [facility] Start: 1968 Hepatitis C screening Hepatitis C Screening [facility] Start: 1962 Depression screening using PHQ-9 (Patient Health Questionnaire 9) score Depression Screening (PHQ-2/9) [facility] Start: 1953 History and physical examination, annual for health maintenance Wellness Visit [facility] Start: 1950 COVID-19 Vaccine (#1) COVID-19 Vaccine (#1) [facility] Start: 1950 Screening for malignant neoplasm of colon [facility] Start: 1950 Screening for osteoporosis Dexa Scan [facility] Start: 1950 Tetanus vaccination Tetanus: Every 10yrs [facility] Comprehensive metabo lic 2000 panel - Serum or Plasma [facility] Ova OR parasites identification [facility] Patient referral [facility] Work Phone: End: 04-26-2024 RF videography Hypopharynx and Esophagus Views W liquid and paste contrast PO during swallowing XR Esophagram Swallow Study Imaging Routine Zenker diverticulum 1 Occurrences starting 04/26/2023 until 04/26/2024 [facility] Work Phone: Comment on above: 1 Occurrences starting 04/26/2023 until 04/26/2024 Vitamin B12 measurement [facility] Vitamin D, 25-hydrox y measurement [facility] Payers Date Payer Category Payer Self-pay [id number] 2023 Medicare [id number] 2019 Medicare [id number] 2019 Medicare [id number] 1950 Unknown [id number] 1950 Unknown [id number] 1950 Unknown [id number] [id number] 1950 Unknown [id number] 2.16.840.1.483837.3.579.2.900 1950 Unknown [id number] 2.16.840.1.681065.3.579.2.900 1950 Unknown [id number] Medicaid [employer] MEDICAID [employer] MEDICAID [id number] Effective for all dates [phone] [address] [place] [address] [id number]. [id number] Unknown [id number] Unknown [facility] [id number] Unknown [id number] Unknown [id number] [id number] Unknown [id number] [id number] Unknown [id number] [id number] Unknown [id number] [id number] Unknown [id number] [id number] Unknown [id number] Social History Date Type Detail Facility Start: 11-15-2020 End: 04-10-2022 Tobacco smoking status IDIS Unknown if ever smoked [facility] Start: 1950 Sex Assigned At Female W [facility] Start: 1950 Sex Assigned At Not on file O [facility] Start: 03-21-2022 End: 04-10-2022 Tobacco smoking status NHIS Never smoked tobacco [facility] Start: 03-21-2022 Tobacco use and exposure Smokeless tobacco non-user [facility] Start: 03-21-2022 End: 04-23-2023 Alcohol intake Current drinker of alcohol (finding) [facility] Start: 03-11-2022 End: 03-21-2022 Exposure to SARS-CoV-2 (event) Not sure [facility] Start: 03-21-2022 End: 04-23-2023 History of Social function [facility] Start: 03-21-2022 End: 04-23-2023 Tobacco use panel [facility] Medical Equipment Procedure Code Equipment Code Equipment Origin al Text Equipment Identifier Dates Excision, Zenker's diverticulum 45mm Standard Reload FDA Start: 11-19-2020 Excision, Zenker's diverticulum 45mm Standard Reload FDA Start: 11-19-2020 Excision, Zenker's diverticulum 45mm Standard Reload FDA Start: 11-19-2020 Excision, Zenker's diverticulum 45mm Standard Reload FDA Start: 11-19-2020 Excision, Zenker's diverticulum 45mm Standard Reload FDA Start: 11-19-2020 Excision, Zenker's diverticulum 45mm Standard Reload FDA Start: 11-19-2020 Excision, Zenker's diverticulum 45mm Standard Reload FDA Start: 11-19-2020 Excision, Zenker's diverticulum 45mm Standard Reload FDA Start: 11-19-2020 Excision, Zenker's diverticulum 45mm Standard Reload FDA Start: 11-19-2020 Excision, Zenker's diverticulum 45mm Standard Reload FDA Start: 11-19-2020 Excision, Zenker's diverticulum 45mm Standard Reload FDA Start: 11-19-2020 Excision, Zenker's diverticulum 45mm Standard Reload FDA Start: 11-19-2020 Excision, Zenker's diverticulum 45mm Standard Reload FDA Start: 11-19-2020 Excision, Zenker's diverticulum 45mm Standard Reload FDA Start: 11-19-2020 Excision, Zenker's diverticulum 45mm Standard Reload FDA Start: 11-19-2020 Excision, Zenker's diverticulum 45mm Standard Reload FDA Start: 11-19-2020 Excision, Zenker's diverticulum 45mm Standard Reload FDA Start: 11-19-2020 Excision, Zenker's diverticulum 45mm Standard Reload FDA Start: 11-19-2020 Excision, Zenker's diverticulum 45mm Standard Reload FDA Start: 11-19-2020 Excision, Zenker's diverticulum 45mm Standard Reload FDA Start: 11-19-2020 Excision, Zenker's diverticulum 45mm Standard Reload FDA Start: 11-19-2020 Excision, Zenker's diverticulum 45mm Standard Reload FDA Start: 11-19-2020 Excision, Zenker's diverticulum 45mm Standard Reload FDA Start: 11-19-2020 Excision, Zenker's diverticulum 45mm Standard Reload FDA Start: 11-19-2020 Excision, Zenker's diverticulum 45mm Standard Reload FDA Start: 11-19-2020 Excision, Zenker's diverticulum 45mm Standard Reload FDA Start: 11-19-2020 Mental Status Date Assessment Result Facility 11-15-2022 Cognitive function Voice/Name [facility] Work Phone: Clinical Notes 03-21-2022 to 10-27-2024 Note Date & Type Note Facility 10-27-2024 Progress note [facility] 10-27-2024 Progress note Note Date/Time October 27, 2024 8:25am [facility] [place] [address] OFFICE VISIT Date of Service: 10/27/24 MR#: [id number] Acct: [id number] Name: PHYLICIA TAY Rep #: [id number] : 1950 Provider: Dr. Derrick Montanez MD Age/Sex: 74/F Location: [facility] Status: Signed Intake Vital Signs 10/15/23 08:06 12/05/23 14:18 10/27/24 07:57 Height 5 ft 2 in 5 ft 2 in 5 ft 2 in Weight: 156 lb 2 oz BMI 28.5 BP 145/82 H Blood Pressure Location Lt brachial Position Sitting Pulse 63 Pulse Source Monitor Pulse Oximetry (%) 97 Oxygen Delivery Method room air Intake Visit Reasons: 1 Y FU Chief Complaint: Osteoporosis Is patient in pain?: No Allergies No Known Allergies Allergy (Verified 10/27/24 08:02) Medications ?Medication ?Instructions ?Recorded ?Confirmed ?Type acetaminophen 160 mg/5 mL (5 mL) 500 mg (15.625 mL) PO Q4H PRN PRN 11/19/20 10/27/24 Rx oral suspension Pain Score 1-5 #0 mL cholecalciferol (vitamin D3) 250 250 mcg PO QWEEK 09/1710/27/24 History mcg (10,000 unit) capsule zoledronic acid 5 mg/100 mL in 1 ea .Route ONCE #100 m L 10/27/24 10/27/24 Rx mannitol 5 %-water intravenous piggybck Have you fallen in the past year?: No PFSH Medical History Osteoporosis Loss of hearing Wears glasses Alcohol use Difficulty swallowing Non-smoker Shortness of breath on exertion Screening for intestinal cancer Zenker's diverticulum Dysphagia Zenkers diverticulum Depression Surgical History S/P laparoscopic cholecystectomy Social History household members: spouse and other details: two grandchildren Smoking Status: Never smoker alcohol intake: current alcohol intake frequency: holidays/special occasions only do you feel safe at home: Yes HPI HPI Chief Complaint: Osteoporosis Details: PHYLICIA TAY, is a 74 F who presents to the office today for follow up. She has osteoporosis with t-score of -2.5 in the right femoral neck. She cannot take oral bisphosphonate. She received her first Reclast infusion on November 15, 2022. She tolerated it well. She would like to proceed with a full course. No recent falls or fractures. She reports paresthesias of both feet. ROS Const Constitutional: No fatigue, weight change or change in appetite Eyes Eyes: No change in vision ENT ENT: No dizziness/vertigo or difficulty swallowing Cardio Cardiology: No chest pain at rest, chest pain with exertion, shortness of breathor palpitations Musc Musculoskeletal: Positive for numbness and tingling; No abnormal gait or joint pain Neuro Neurology: Positive for numbness and tingling; No abnormal gait or memory loss Psych Psychiatric: No change in appetite, No memory loss and No Thoughts of harming yourself/Others Resp Respiratory: No cough, chest congestion or shortness of breath Gastro GI: No abdominal pain, constipation, diarrhea or difficulty swallowing Genitourinary-Female: No burning urination Skin Skin: No itchy eyes or wounds Endo Endocrine: No fatigue or weight change Aller/Imm Allergy/Immunologic: No itchy eyes Exam Const General: cooperative, healthy appearing, comfortable, no acute distress, well developed and not cushingoid Nutritional Appearance: well nourished Orientation: alert, awake and oriented x3 HENMT Head: normal to inspection Ears: hearing grossly normal bilaterally Nose: external nose normal Mouth: oral mucosae normal Eyes General: appearance normal, both eyes and all related structures Alignment and Position: alignment normal Periorbital: periorbital findings normal Eyelids: eyelids normal Conjunctivae: conjunctivae normal Neck Neck: normal visual inspection Neck mass: No Thyroid: thyroid normal Carotids: no bruits Lymphatic: no lymphadenopathy noted Chest Chest palpation & inspection: normal inspection of the chest Resp Effort & Inspection: normal respiratory effort, able to speak in complete sentences, symmetric chest movement, no audible wheezes and no cough Auscultation: Bilateral: Clear to Auscultation Cardio Rate: regular rate Rhythm: regular rhythm Pulses: posterior tibial pulses present Skin General: no rashes or lesions noted Neuro General: patient alert, patient awake and patient oriented x3 Cranial Nerves: CN's II-XI intact bilaterally Cognition: normal cognition Speech: speech normal Gait: normal gait Motor: muscle tone normal throughout Extrem General: no edema Psych Appearance: grossly normal Mental Status: mental status grossly normal Mood: congruent mood Affect: normal affect Speech and Movement: speech and movement normal Attitude: cooperative Thought Process: normal Thought Content: normal Judgment: judgment good Clinical Quality Measures Falls Risk Screening/Assistive Devices Have you fallen in the past year?: No Assessment and Plan Assessment and Plan (1) Osteoporosis: Status: Chronic Qualifiers: Osteoporosis type: age-related Presence of current pathological fracture: without current pathological fracture Qualified Code(s): M81.0 - Age-related osteoporosis without current pathological fracture Plan: Continue Reclast for 5 infusions. Maintain normal calcium and vitamin D levels. Avoid falls. Exercise to maintain good balance. (2) Paresthesia of both feet: Status: Acute Plan: Check B12 level. I have spent [30] minutes today reviewing labs, records and history. Time includes coordinating care, interpretation of tests, discussion with patient's other health care providers via telephone. This also includes time I spent with the patient for exam, treatment plan and education as well as documenting clinical information. I am providing longitudinal care Orders: Orders Comprehensive Metabolic Profil Today M81.0 - Age-related osteoporosis without current pathological fracture Vitamin D,25 Hydroxy Today E03.9 - Hypothyroidism, unspecified, E55.9 - Vitamin D deficiency, unspecified, M81.0 - Age-related osteoporosis without current pathological fracture Vitamin B12 Today R20.2 - Paresthesia of skin Medications: Refilled zoledronic eaxz-lvchhlcb-rdvnw 5 mg/100 mL onceinfuse over 20 minutes 100 mL 0RF Coding Level of Care Code Off vis,est,level 4 Extra Time Spent Extra Time Spent Extra Time Spent: G2211 Diagnoses Age-related osteoporosis without current pathological fracture M81.0 Osteoporosis type: age-related Presence of current pathological fracture: without current pathological fracture Paresthesia of both feet R20.2 Additional Codes Extra Time Spent - Extra Time Spent: G2211 (G2211) 10/27/24 0825 <Electronically signed by Derrick Montanez MD> Date _ Derrick Montanez MD Cosigner Signature: Date (if applicable) CC: Dr. Domingo Aguiar, DO ~ [facility] Work Phone: 1(724) 413-216402-08-2024 Note* Addendum Note - Benny Naranjo MD - 04/26/2023 8:51 AM ESTAddended by: BENNY NARANJO on: 04/26/2023 08:51 AM Modules accepted: Orders [id number] Miscellaneous Notes* Addendum Note - Benny Naranjo MD - 04/26/2023 8:51 AM ESTAddended by: BENNY NARANJO on: 04/26/2023 08:51 AM Modules accepted: Orders documented in this [id number] Instructions* Patient Instructions* Benny Naranjo MD - 04/23/2023 11:25 AM [...] identify causes of pain, breathing or swallowing problems,possibly due to tumors, infection, congenital abnormality, injury, [...] risk of severe breathing problems requiring tracheostomy (surgicalbreathing tube through the neck). There is also a risk of complications from anesthesia. ? Alternatives- Some conditions of the larynx and throat structures may be observed, treated with voice therapy, or with medication. Some cancerous lesions may be treated with radiation or treatment other than surgery, although a biopsy to confirm cancer is often needed. Sometimes a decision to nothave treatment can have serious consequences that you should discuss with your doctor. ? Complications- Complications of surgery on the larynx and throat generally include: obstruction of breathing from swelling or bleeding; infection, sometimes requiring additional surgical treatment;injury with serious functional consequences to swallowing or [...] is usually rapid and generally lasts 1-2 weeks.Recovery from infections or cancer may require longer [...] effects of anesthesia and should subside in thefirst day or two. If they continue, are [...] normal activities unless advised otherwise by your doctor.Do not drive or operate machinery while on narcotic pain medication. ? MEDICATIONS- Ask your doctor about resuming your home medications. Do not take herbal medicationswithout asking your doctor as these often have blood thinning properties which can increase the risk of bleeding. CONTINUING CARE- What additional care do I need? After you are discharged from the hospital, your doctor will see you for follow- up evaluation in approximately two weeks after surgery unless another time has been arranged. Call the office if an appointment has not been previously scheduled. You will likely be seen for several visits to ensure that healing is progressing well and that no complications or unexpected problems have been encountered. Additional medication, voice, or swallowing therapy may be needed to treat some conditions. If thesurgery was performed for the evaluation or treatment [...] PROVIDED IN THIS DOCUMENT documented in this [id number] Instructions* Patient Instructions* Benny Naranjo MD - 04/23/2023 11:25 AM [...] identify causes of pain, breathing or swallowing problems,possibly due to tumors, infection, congenital abnormality, injury, [...] risk of severe breathing problems requiring tracheostomy (surgicalbreathing tube through the neck). There is also a risk of complications from anesthesia. ? Alternatives- Some conditions of the larynx and throat structures may be observed, treated with voice therapy, or with medication. Some cancerous lesions may be treated with radiation or treatment other than surgery, although a biopsy to confirm cancer is often needed. Sometimes a decision to nothave treatment can have serious consequences that you should discuss with your doctor. ? Complications- Complications of surgery on the larynx and throat generally include: obstruction of breathing from swelling or bleeding; infection, sometimes requiring additional surgical treatment;injury with serious functional consequences to swallowing or [...] is usually rapid and generally lasts 1-2 weeks.Recovery from infections or cancer may require longer [...] effects of anesthesia and should subside in thefirst day or two. If they continue, are [...] normal activities unless advised otherwise by your doctor.Do not drive or operate machinery while on narcotic pain medication. ? MEDICATIONS- Ask your doctor about resuming your home medications. Do not take herbal medicationswithout asking your doctor as these often have blood thinning properties which can increase the risk of bleeding. CONTINUING CARE- What additional care do I need? After you are discharged from the hospital, your doctor will see you for follow- up evaluation in approximately two weeks after surgery unless another time has been arranged. Call the office if an appointment has not been previously scheduled. You will likely be seen for several visits to ensure that healing is progressing well and that no complications or unexpected problems have been encountered. Additional medication, voice, or swallowing therapy may be needed to treat some conditions. If thesurgery was performed for the evaluation or treatment [...] PROVIDED IN THIS DOCUMENT documented in this [id number] History of Present illness Narrative* Benny Naranjo MD - 04/23/2023 11:16 AM EST [facility] [address] [facility] [place] [address] [facility] [address] Dept: [phone] MD Phylicia Arizmendi 73 y.o. female Patient [...] tenderness of submandibular glands, no masses of subma ndibular glands, clear salivary flow from Muscatine's ducts, no stones of Mus[place]'s ducts Temporomandibular Joint: no crepitus with motion, [...] after an initial very good result after treatmentof a Zenker's diverticulum. Recent barium swallow shows a recurrent large diverticulum with retention of barium contrast. I have reviewed her radiology report from this recent swallow study as well as the speech therapy notes, as well as her prior test results that had initially shown an improved swallow after her initial treatment. 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 Repeat endoscopic treatment [...] signature was used to authenticate this note. * Zoe Larry CMA - 04/23/2023 10:28 AM EST Review of Systems Constitutional: Negative. HENT: Negative. Eyes: Negative. Respiratory: Negative. Cardiovascular: Negative. Gastrointestinal: Negative. Endocrine: Negative. Genitourinary: Negative. Musculoskeletal: Negative. Skin: Negative. Allergic/Immunologic: Negative. Neurological: Negative. Psychiatric/Behavioral: Negative. documented in this [id number] History of Present illness Narrative* Benny Naranjo MD - 04/23/2023 11:16 AM EST [facility] [address] [facility] [place] [address] [facility] [address] Dept: [phone] MD Phylicia Arizmendi 73 y.o. female Patient [...] tenderness of submandibular glands, no masses of subma ndibular glands, clear salivary flow from Muscat[place]'s ducts, no stones of Brooke's ducts Temporomandibular Joint: no crepitus with motion, [...] after an initial very good result after treatmentof a Zenker's diverticulum. Recent barium swallow shows a recurrent large diverticulum with retention of barium contrast. I have reviewed her radiology report from this recent swallow study as well as the speech therapy notes, as well as her prior test results that had initially shown an improved swallow after her initial treatment. 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 Repeat endoscopic treatment [...] is some retention of the contrast material atthe base of the imaging and barium swallow for full evaluation is suggested as the patient prefers to avoid surgical management if possible. * Zoe Larry CMA - 04/23/2023 10:28 AM EST Review of Systems Constitutional: Negative. HENT: Negative. Eyes: Negative. Respiratory: Negative. Cardiovascular: Negative. Gastrointestinal: Negative. Endocrine: Negative. Genitourinary: Negative. Musculoskeletal: Negative. Skin: Negative. Allergic/Immunologic: Negative. Neurological: Negative. Psychiatric/Behavioral: Negative. documented in this [id number] Procedure [facility]2023 Discharge summary Author Benny Olmos [facility] May 26, 2022 9:35am Note Date/Time May 26, 2022 9:3 5am [facility] Physical Therapy [facility] [address] [place] [address]. [address] [place] [address] / REHABILITATION SERVICES DISCHARGE SUMMARY MR#: [id number] Acct: [id number] Name: PHYLICIA TAY Rep #: [id number] : 1950 72 From: Benny Olmos DPT, OCS, CSCS Referring Dr.: Dr. Ian Leiva DO Status: REG RCR Insurance: [employer] [facility] It has been my pleasure to treat PHYLICIA TAY referred by Dr. Ian Leiva DO, with the diagnosis of DDD, lumbar radiculopathy for a total of 6 visit(s). Discharge Date: 05/26/22 Please see the following information for a summary of their discharge status. Subjective: Doing well.No pain. No Pain in L hip for weeks. Can do her gym workout herself. L post hip Pain Intensity (Out of 10): 0 % Improvement: 99 Objective/Function: No tenderness in hip, good hip ROM and no pain with resistedtesting rotations L hip. No gait problems or antalgia. overall doing well ahead of schedule Goal 1:: Pain in L hip 99% better and 1/10 at worst and manageable Goal Progress: Goal Met Goal 2:: I appropriate gym based core and LE and postural strength program(you ramirez) Goal Progress: Goal Met Goal 3:: No tenderness posterior L hip to palpation or ext rotation of hip in order to tolerate stanidn for volleyball ref better. Goal Progress: Goal Met Plan: d/c to gyma dn HEP Discharge Comments: Pt to continue workout in gy as member I. If there are questions or concerns regarding this patient's physical therapy, please feel free to call me at [phone]. Thank you for the referral of thispatient. Sincerely, Benny Olmos, DPT, OCS, CSCS Balance/Gait/Functional tests - Balance/Special Test Scores Oswestry Low Back Score: 0 <Electronically signed by Benny TERRYT, OCS, CSCS> 05/26/22 0935 CC: Dr. Ian Leiva DO; Dr. Domingo Aguiar DO ~ [facility] Signed [facility] Work Phone: 1(790) 528-439301-03-2023 History of Present illness Narrative* Benny Naranjo MD - 03/21/2022 9:21 AM EST [facility] [address] [address] Dept: [phone] MD Phylicia Arizmendi 72 y.o. female Patient [...] tenderness of submandibular glands, no masses of subma ndibular glands, clear salivary flow from [place]'s ducts, no stones of Brooke's ducts Temporomandibular Joint: no crepitus with motion, [...] after an initial very good result after treatmentof a Zenker's diverticulum. Her recent swallow study showed some retention in the vallecula, but noresidual or recurrent diverticulum. She is in need of treatment for osteoporosis and as the oral med ications often result in symptomatic esophagitis, alternative treatments may be more appropriate inthis setting. The rationale for any prescribed radiographic [...] signature was used to authenticate this note. * Janna Hardy MA - 03/21/2022 9:13 AM EST Review of Systems Constitutional: Negative. HENT: Positive for hearing loss and trouble swallowing. Eyes: Positive for visual disturbance. Respiratory: Negative. Cardiovascular: Negative. Gastrointestinal: Negative. Endocrine: Negative. Genitourinary: Negative. Musculoskeletal: Negative. Skin: Negative. Allergic/Immunologic: Negative. Neurological: Negative. Hematological: Negative. Psychiatric/Behavioral: Negative. documented in this encounterOh[facility]Evaluation noteNo assessment information availableWCleveland Clinic [facility] Work Phone: Evaluation note* Diagnosis Zenker diverticulum- Primary Diverticulum of esophagus, acquired [facility] Diagnosis Oropharyngeal dysphagia- Primary Dysphagia, oropharyngeal phase Zenker diverticulum Diverticulum of esophagus, acquired [facility] Diagnosis Onset Date Resolution Status Lumbar radiculopathy noneact fallon Lumbar degenerative disc disease noneactive [facility] Work Phone: Evaluation note* Diagnosis Onset Date Resolution Status Osteoporosis noneactive [facility] Work Phone: Evaluation note* Diagnosis Zenker diverticulum- Primary Diverticulum of esophagus, acquired Oropharyngeal dysphagia Dysphagia, oropharyngeal phase Zenker diverticulum Diverticulum of esophagus, acquired Oropharyngeal dysphagia Dysphagia, oropharyngeal phase Zenker diverticulum Diverticulum of esophagus, acquired Oropharyngeal dysphagia Dysphagia, oropharyngeal phase documented [facility]* Diagnosis Zenker diverticulum- Primary Diverticulum of esophagus, acquired Oropharyngeal dysphagia Dysphagia, oropharyngeal phase Zenker diverticulum Diverticulum of esophagus, acquired Oropharyngeal dysphagia Dysphagia, oropharyngeal phase Zenker diverticulum Diverticulum of esophagus, acquired Oropharyngeal dysphagia Dysphagia, oropharyngeal phase [facility] Diagnosis Zenker diverticulum- Primary Diverticulum of esophagus, acquired Oropharyngeal dysphagia Dysphagia, oropharyngeal phase Zenker diverticulum Diverticulum of esophagus, acquired Oropharyngeal dysphagia Dysphagia, oropharyngeal phase Zenker diverticulum Diverticulum of esophagus, acquired Oropharyngeal dysphagia Dysphagia, oropharyngeal phase [facility] Diagnosis Onset Date Resolution Status Admit Date Paresthesia of both feet acute October 27, 2024 8:00am Osteoporosis chronic October 27, 2024 8:00am [facility] Work Phone: Reason for referral (narrative)No reason for referral information availableWCleveland Clinic [facility] Work Phone: Advance Directives No Advanced Directives Records Found Advance Directive Response Recorded Date/ Time Living Will No November 15 2:13pm Power of [employer] Yes November 15, 2 021 2:13pm Advance Directive Response Recorded Date/ Time Living Will No November 15 1:13pm Power of [employer] Yes November 15, 021 1:13pm Advance Directive Response Recorded Date/ Time Living Will No November 15 2:13pm Do you have a Healthcare Power of [employer]? Yes November 15, 2020 2:13pm Chief Complaint and Reason for Visit Chief Complaint FATIGUE Chief Complaint FATIGUE SCREENING/POST UMAIR Chief Complaint FATIGUE SCREENING/POST UMAIR DIVERTICULUM OF ESOPHAGUS, DYSPHAGIA Chief Complaint FATIGUE SCREENING/POST UMAIR DIVERTICULUM OF ESOPHAGUS, DYSPHAGIA LEFT HIP XRAY- PAIN DYSPHAGIA/RX HERE Chief Complaint DIVERTICULUM OF ESOP HAGUS, DYSPHAGIA LEFT HIP XRAY- PAIN DYSPHAGIA/RX HERE LEFT HIP room 1 LUMBAR DDD RX HERE Reason for Visit Lumbar radiculopathy Lumbar degenerative disc disease Chief Complaint Osteoporosis RECLAST Reason for Visit Osteoporosis Chief Complaint DYSPHAGIA Chief Complaint DYSPHAGIA Diverticulum of esophagus, acquired Chief Complaint Admit Date 1 Y FU October 27, 2024 8: 00am Reason for Visit Admit Date Paresthesia of both feet October 27 8:00am Osteoporosis October 27, 2024 8: 00am Reason for Referral Specialty Diagnoses / Procedures Referred By Tyron barrios Referred To Contact Otolaryngology Diagnoses Zenker diverticulum Domingo Aguiar, DO [address] [place] [id number] Benny Naranjo MD [address] [place] [id number] Referral ID Status Reason Start Date Expiration Date V isits Requested Visits Authorized [id number] Authorized 03/16/2022 03/16/2023 1 1 Specialty Diagnoses / Procedures Referred By Tyron barrios Referred To Contact Radiology Diagnoses Zenker diverticulum Procedures XR Esophagram Swallow Study Benny Naranjo MD [address] [address] Referral ID Status Reason Start Date Expiration Date V isits Requested Visits Authorized [id number] Pending Review 04/26/2023 04/25/2024 1 1 Summary Purpose Family History No Family History Records FoundNo Family History Records FoundNo Family History Records FoundNo Family History Records Found Additional Source Comments Goals (unrecognized section and content) Goals may be documented in a n alternate sectionGoals may be documented in an alternate sectionGoals may be documented in an alternate sectionGoals may be documented in an alternate sectionGoals may be documented in an alternate sectionGoals may be documented in an alternate sectionGoals may be documented in an alternate sectionGoals may be documented in an alternate sectionGoals may be documented in an alternate sectionGoals may be documented in an alternate sectionGoals may be documented in an alternate sectionGoals may be documented in an alternate sectionGoals may be documented in an alternate section Reason for Visit (unrecogniz ed section and content) Reason Comments trouble swallowing New pt Specialty Diagnoses / Procedures Referred By Tyron barrios Referred To Contact Otolaryngology Diagnoses Zenker diverticulum Domingo Aguiar DO [address] [place] [id number] Benny Naranjo MD [address] [place] [id number] Referral ID Status Reason Start Date Expiration Date Visits Re quested Visits Authorized [id number] Closed 03/16/2022 03/16/2023 1 1 Reason Comments Follow-up Reason Comments Follow-up Care Teams (unrecognized sec tion and content) Team Status: Active Member Role Status Dates Dr. Domingo Aguiar DO Family Provider Active Dr. Domingo Aguiar DO Primary Care Provider Active Team Status: Active Member Role Status Dates Dr. Domingo Aguiar DO Primary Care Provider Active Dr. Tray Serna MD Attending Provider Active Team Status: Inactive Member Role Status Dates Dr. Domingo Aguiar DO Primary Care Provider, Attendin g Provider Active Team Status: Inactive Member Role Status Dates Dr. Domingo Aguiar DO Primary Care Prov ider, Attending Provider, Referring Provider Active Team Status: Active Member Role Status Dates Dr. Domingo Aguiar DO Primary Care Prov ider, Attending Provider, Referring Provider Active Team Status: Inactive Member Role Status Dates Dr. Domingo Aguiar DO Primary Care Provider, Referrin g Provider Active Dr. Ian Leiva , DO Attending Provider Active Team Status: Inactive Member Role Status Dates Dr. Domingo Aguiar DO Primary Care Provider Active Dr. Tray Serna MD Attending Provider Active Team Status: Inactive Member Role Status Dates Dr. Domingo Aguiar DO Primary Care Provider Active Dr. Ian Leiva , DO Attending Provider, Referring Provider Active Team Status: Inactive Member Role Status Dates Dr. Domingo Aguiar DO Primary Care Provider, Referrin g Provider Active Dr. Derrick Montanez MD Attending Provider Active Team Status: Inactive Member Role Status Dates Dr. Domingo Aguiar DO Primary Care Provider Active Dr. Derrick Montanez MD Attending Provider, Referring Provi yane Active Hand Buffing Wheel Former Relationship Specialty Start Date End Date Domingo Aguiar DO [address] [address] PCP - General Family Medicine 04/23/23 Hand Buffing Wheel Former Relationship Specialty Start Date End Date Cosme, Domingo Calderon, DO [address] [facility] [place] [address] PCP - General Family Medicine 04/23/23 Team Status: Inactive Member Role Status Dates Dr. Domingo Aguiar DO Primary Care Provider Active Dr. Benny Naranjo MD Attending Provider, Referring Pro vider Active Team Status: Inactive Member Role Status Dates Dr. Domingo Aguiar DO Primary Care Provider Active Start: August 14, 2024 End: August 14, 2024 NITZA Gregorio Attending Provider Active St art: August 14, 2024 End: August 14, 2024 NITZA Gregorio Referring Provider Active St art: August 14, 2024 End: August 14, 2024 Team Status: Active Member Role/Relationship Status Dates Dr. Domingo Aguiar DO Family Provider Active Dr. Domingo Aguiar DO Primary Care Provider Active Team Status: Inactive Member Role/Relationship Status Dates Dr. Domingo Aguiar DO Primary Care Provider Active Start: August 14, 2024 End: August 14, 2024 NITZA Gregorio Attending Provider Active St art: August 14, 2024 End: August 14, 2024 NITZA Gregorio Referring Provider Active St art: August 14, 2024 End: August 14, 2024 Team Status: Inactive Member Role/Relationship Status Dates Dr. Domingo Aguiar DO Primary Care Provider Active Start: October 27, 2024 End: October 27, 2024 Dr. Domingo Aguiar DO Referring Provider Active Start: October 27, 2024 End: October 27, 2024 Dr. Derrick Montanez MD Attending Provider Active Sta rt: October 27, 2024 End: October 27, 2024 INFORMATION SOURCE (unrecogn ized section and content) DATE CREATED AUTHOR 04/25/2023 [facility] DATE CREATED AUTHOR AUTHOR'S ORGANIZ ATION 04/29/2023 [facility] DATE CREATED AUTHOR AUTHOR'S ORGANIZ ATION 05/02/2023 [facility] DATE CREATED AUTHOR AUTHOR'S ORGANIZ ATION 10/27/2024 [facility] FOR RECORDS PERTAINING TO PATIENTS WHO ARE [...] BE BASED ON THE PRIMARY CLINICAL RECORDS. [employer] provides no warranty or guarantee of the accuracy or completeness of information in this document.
[2024-11-05 11:24] LABS: AST(SGOT) 19 U/L (<=31); Alanine Aminotransfer ALT/SGPT 19 U/L (<=34); Albumin, Serum 3.9 g/dL (3.4-4.8); Alkaline Phosphatase 64 U/L (35-104); Anion Gap 10 (5-15); BUN 14 mg/dL (4-19); BUN/Creat Ratio 17.5 RATIO (10-20); Calcium,Total 9.2 mg/dL (7.6-11.0); Carbon Dioxide 25.6 mmol/L (21.0-32.0); Chloride 106 mmol/L (98-108); Globulin 2.4 g/dL (2.2-4.2); Glucose 81 mg/dL (70-99); Potassium 4.2 mmol/L (3.3-5.1)
[2024-11-05 12:17] LABS: Vitamin B12 388 pg/mL (180-914); Vitamin D,25 Hydroxy 33.8 ng/mL (30-100)
== END | disposition home or self-care (01) ==
LOC: MTLAB 07:44
PROVIDERS: PCP Family Medicine; Referring Provider Internal Medicine Endocrinology, Diabetes & Metabolism; Visit Provider Internal Medicine Endocrinology, Diabetes & Metabolism
DX: R20.2 Paresthesia of skin (principal); E03.9 Hypothyroidism, unspecified; E55.9 Vitamin D deficiency, unspecified; M81.0 Age-related osteoporosis without current pathological fracture
CPT/HCPCS: 36415; 80053; 82306; 82607

== ENCOUNTER 2024-12-08 15:28 | Outpatient (CLI) | payer MEDICARE, SELFPAY ==
[2024-12-08 15:33] VITALS: BP 154/84; PULSE 64; RESP 16; TEMP 35.7; O2SAT 99
[2024-12-08] MEDS: 0.9% NaCl Peripheral Flush Adult IV (15:35)
[2024-12-08] MEDS: 0.9% NaCl IVPB Med Flush (100mL) 15 ML IV (15:38)
[2024-12-08 16:08] VITALS: BP 126/71; PULSE 64; RESP 16; TEMP 36.7; O2SAT 98
== END 2024-12-08 23:59 | disposition home or self-care (01) ==
LOC: MEDOUTP 15:29
PROVIDERS: PCP Family Medicine; Referring Provider Internal Medicine Endocrinology, Diabetes & Metabolism; Visit Provider Internal Medicine Endocrinology, Diabetes & Metabolism
DX: M81.0 Age-related osteoporosis without current pathological fracture (principal)
CPT/HCPCS: 96365; A4216; J3489

== ENCOUNTER → 2025-02-25 | Outpatient (CLI) | payer MEDICARE, SELFPAY | END | disposition home or self-care (01) | LOC: LABSPEC 15:36 | PROVIDERS: PCP Family Medicine; Visit Provider Family Medicine | DX: R82.90 Unspecified abnormal findings in urine (principal) | CPT/HCPCS: 87077; 87086; 87088; 87186 ==